=== PATIENT | male | born 1935 | race Two or more races ===

== ENCOUNTER 2021-09-12 13:19 | Inpatient (IN) | payer MEDICARE, MEDICAID ==
[~2021-09-12] VITALS: Ht 167.6 cm; Wt 68.8 kg
[2021-09-12] MEDS ORDERED: SODIUM CHLORIDE 0.9% 1,000 ML IV ONE (13:45)
[2021-09-12] MEDS ORDERED: SODIUM CHLORIDE 0.9% 250 ML IV ONE (13:45)
[2021-09-12 14:40] LABS: Basophils # (auto) 0 10 ^3/uL (0-0.2); Basophils % (auto) 0.3 % (0.0-2.0); Eosinophils # (auto) 0 10 ^3/uL (0-0.8); Eosinophils % (auto) 0.2 % (0.0-7.0); Hematocrit 43.8 % (41.0-53.0); Hemoglobin 14.6 g/dL (13.5-17.5); Lymphocytes # (auto) 2.1 10 ^3/uL (0.4-5.4); Lymphocytes % (auto) 19.8 % (10.0-50.0); Mean Corpuscular Hemoglobin 31.6 pg (28.0-32.0); Mean Corpuscular Hgb Conc. 33.3 g/dL (32.0-36.0); Mean Corpuscular Volume 94.9 fL (80.0-100.0); Monocytes # (auto) 0.4 10 ^3/uL (0-1.3); Monocytes % (auto) 3.9 % (0.0-12.0); Neutrophils # (auto) 7.9 10 ^3/uL (1.6-8.6); Neutrophils % (auto) 75.8 % (37.0-80.0); Red Blood Cells 4.61 10^6/uL (4.5-5.90); Red Cell Distribution Width 14.2 % (11.8-14.3); White Blood Cell 10.4 10^3/uL (4.4-10.8)
[2021-09-12 15:00] LABS: Albumin 3.5 g/dL (3.4-5.0); Bilirubin, Total 0.4 mg/dL (0.2-1.0); Calcium 9.1 mg/dL (8.5-10.1); Total Protein 7.5 g/dL (6.4-8.2)
[2021-09-12 15:07] LABS: Potassium 5.9 mmol/L (3.5-5.1)
[2021-09-12 16:01] LABS: Urine Bacteria NONE SEEN /hpf (None Seen); Urine Blood Negative /uL (Negative); Urine Specific Gravity 1.027 (1.001-1.035); Urine WBC <1 /hpf (0 - 3)
[2021-09-13 00:59] LABS: BUN/Creatinine Ratio 17.5; Calcium 8.5 mg/dL (8.5-10.1); Potassium 4.4 mmol/L (3.5-5.1)
[2021-09-13 01:08] LABS: Bilirubin, Total 0.5 mg/dL (0.2-1.0)
[2021-09-13] MEDS ORDERED: ACETAMINOPHEN 325 MG TAB PO PRN (01:45)
[2021-09-13] MEDS ORDERED: DEXTROSE (50%) 50ML SYRG IV PRN (01:45)
[2021-09-13] MEDS ORDERED: ONDANSETRON HCL 4 MG/2 ML VIAL IV PRN (01:45)
[2021-09-13] MEDS ORDERED: InsuLIN REG 1unit/0.01ml Soln (100units/ml) IV ONE (02:00)
[2021-09-13] MEDS: ACCU-CHEK COMFORT CURVE STRIP VI SCH ×5 (04:00→20:42)
[2021-09-13] MEDS: InsuLIN REG 1unit/0.01ml Soln (100units/ml) SC SCH ×5 (04:36→20:45)
[2021-09-13] MEDS ORDERED: PANTOPRAZOLE 40 MG TAB PO SCH (10:00)
[2021-09-13] MEDS: BENAZEPRIL HCL 10 MG TAB PO SCH (10:03)
[2021-09-13] MEDS ORDERED: METF-370 PO (11:58)
[2021-09-13] MEDS ORDERED: GLIP5TAB12 PO (12:00)
[2021-09-13] MEDS ORDERED: BENA10TA15 PO (12:01)
[2021-09-13 16:22] VITALS: BP 114/61
[2021-09-13 21:35] VITALS: BP 102/51
[2021-09-14] MEDS: InsuLIN REG 1unit/0.01ml Soln (100units/ml) SC SCH ×6 (01:11→20:00)
[2021-09-14] MEDS: ACCU-CHEK COMFORT CURVE STRIP VI SCH ×6 (01:12→20:00)
[2021-09-14 06:15] LABS: Basophils # (auto) 0.1 10 ^3/uL (0-0.2); Basophils % (auto) 0.5 % (0.0-2.0); Eosinophils # (auto) 0.3 10 ^3/uL (0-0.8); Eosinophils % (auto) 3.1 % (0.0-7.0); Hematocrit 40.1 % (41.0-53.0); Hemoglobin 13.6 g/dL (13.5-17.5); Lymphocytes # (auto) 3.8 10 ^3/uL (0.4-5.4); Lymphocytes % (auto) 39.6 % (10.0-50.0); Mean Corpuscular Hemoglobin 32.1 pg (28.0-32.0); Mean Corpuscular Volume 94.5 fL (80.0-100.0); Monocytes # (auto) 0.5 10 ^3/uL (0-1.3); Neutrophils % (auto) 51.8 % (37.0-80.0); Nucleated Red Blood Cells % 0.1 %; Red Blood Cells 4.25 10^6/uL (4.5-5.90); Red Cell Distribution Width 14.2 % (11.8-14.3); White Blood Cell 9.6 10^3/uL (4.4-10.8)
[2021-09-14 06:34] LABS: Calcium 8.2 mg/dL (8.5-10.1); Potassium 4.9 mmol/L (3.5-5.1)
[2021-09-14 06:38] LABS: BUN/Creatinine Ratio 27.8
[2021-09-14 08:47] VITALS: BP 137/65
[2021-09-14] MEDS: BENAZEPRIL HCL 10 MG TAB PO SCH (09:24)
[2021-09-14 12:44] VITALS: BP 100/54
[2021-09-14 21:30] VITALS: BP 109/59
[2021-09-14] MEDS: INSULIN LANTUS (GLARGINE) 1 /0.01ml (100units/ml) SC SCH (21:51)
[2021-09-15] MEDS: ACCU-CHEK COMFORT CURVE STRIP VI SCH ×6 (04:00→20:00)
[2021-09-15] MEDS: InsuLIN REG 1unit/0.01ml Soln (100units/ml) SC SCH ×6 (04:00→20:00)
[2021-09-15 05:00] VITALS: BP 104/64
[2021-09-15 09:08] VITALS: BP 100/61
[2021-09-15] MEDS: BENAZEPRIL HCL 10 MG TAB PO SCH (10:00)
[2021-09-15 13:00] VITALS: BP 110/68
[2021-09-15 17:04] VITALS: BP 149/83
[2021-09-15 22:00] VITALS: BP 116/68
[2021-09-15] MEDS: INSULIN LANTUS (GLARGINE) 1 /0.01ml (100units/ml) SC SCH (22:00)
[2021-09-16] MEDS: InsuLIN REG 1unit/0.01ml Soln (100units/ml) SC SCH ×4 (04:00→11:53)
[2021-09-16] MEDS: ACCU-CHEK COMFORT CURVE STRIP VI SCH ×4 (04:25→11:50)
[2021-09-16 05:00] VITALS: BP 115/66
[2021-09-16 08:55] VITALS: BP 116/73
[2021-09-16] MEDS: BENAZEPRIL HCL 10 MG TAB PO SCH (10:09)
[2021-09-16 14:30] VITALS: BP 102/54
== END 2021-09-16 16:36 | disposition home or self-care (01) | DRG 420 ==
LOC: ER 13:19 → OVERFLOW 09-13 01:37 → CENTRAL 09-13 17:08 → WEST WING 09-14 05:53
PROVIDERS: ADMIT Nurse Practitioner; ATTEND Family Medicine
DX: E11.00 Type 2 diabetes mellitus with hyperosmolarity without nonketotic hyperglycemic-hyperosmolar coma (NKHHC) (principal); E11.21 Type 2 diabetes mellitus with diabetic nephropathy; E87.5 Hyperkalemia; J44.9 Chronic obstructive pulmonary disease, unspecified; I10 Essential (primary) hypertension; Z20.822 Contact with and (suspected) exposure to COVID-19; Z79.84 Long term (current) use of oral hypoglycemic drugs; Z79.4 Long term (current) use of insulin
CPT/HCPCS: 36415; 71046; 80048; 80053; 81001; 82010; 82962; 83036; 83735; 84443; 84484; 85025; 87426; 93005; 96361; 96374; G0378; J1815

== ENCOUNTER → 2022-06-27 | Outpatient (CLI) | payer MEDICARE, MEDICAID ==
[~2022-06-27] MED LIST: ALBU108A5 PO; ALBUTEROL SULF 2.5 MG/0.5ML(0.5%) NEB SOLN ONE; BENA10TA15 PO; CEPH-509 PO; FLUT100I IN; GLIP5TAB12 PO; METF-929 PO; OMEP-260 PO; PRED20TA2 PO; SODIUM CHLORIDE 0.9 % NEB SOLN 3ML NEB ONE
== END | disposition home or self-care (01) ==
LOC: RT 10:47
PROVIDERS: ATTEND Internal Medicine Pulmonary Disease
DX: J44.9 Chronic obstructive pulmonary disease, unspecified (principal); R06.00 Dyspnea, unspecified
CPT/HCPCS: 94060; 94727; 94729

== ENCOUNTER 2022-09-27 09:20 | Inpatient (IN) | payer MEDICARE, MEDICAID ==
[~2022-09-27] VITALS: Ht 165.1 cm; Wt 80.0 kg
[~2022-09-27 09:20] MED LIST changes: -ALBUTEROL SULF 2.5 MG/0.5ML(0.5%) NEB SOLN ONE; -SODIUM CHLORIDE 0.9 % NEB SOLN 3ML NEB ONE
[2022-09-27 10:13] LABS: Basophils # (auto) 0.1 10 ^3/uL (0-0.2); Basophils % (auto) 0.9 % (0.0-2.0); Eosinophils # (auto) 0.1 10 ^3/uL (0-0.8); Eosinophils % (auto) 1.7 % (0.0-7.0); Hematocrit 42.1 % (41.0-53.0); Hemoglobin 14.2 g/dL (13.5-17.5); Lymphocytes # (auto) 1.4 10 ^3/uL (0.4-5.4); Mean Corpuscular Hemoglobin 30.8 pg (28.0-32.0); Mean Corpuscular Hgb Conc. 33.8 g/dL (32.0-36.0); Mean Corpuscular Volume 91.2 fL (80.0-100.0); Monocytes # (auto) 0.8 10 ^3/uL (0-1.3); Neutrophils # (auto) 6.3 10 ^3/uL (1.6-8.6); Neutrophils % (auto) 72.4 % (37.0-80.0); Nucleated Red Blood Cells % 0.1 %; Red Blood Cells 4.62 10^6/uL (4.5-5.90); Red Cell Distribution Width 14.6 % (11.8-14.3); White Blood Cell 8.8 10^3/uL (4.4-10.8)
[2022-09-27 10:29] LABS: Albumin 3.8 g/dL (3.4-5.0); Calcium 8.6 mg/dL (8.5-10.1); Magnesium 2.1 mg/dL (1.6-2.6); Potassium 4.2 mmol/L (3.5-5.1)
[2022-09-27 10:32] LABS: BUN/Creatinine Ratio 10.4; Bilirubin, Total 0.7 mg/dL (0.2-1.0); Total Protein 7.6 g/dL (6.4-8.2)
[2022-09-27 16:15] LABS: Urine Bacteria NONE SEEN /hpf (None Seen); Urine Blood Negative /uL (Negative); Urine Mucus FEW (None Seen); Urine Specific Gravity 1.019 (1.001-1.035); Urine WBC 2 /hpf (0 - 3)
[2022-09-27] MEDS ORDERED: FUROSEMIDE 40 MG/4 ML VIAL IV ONE (17:30)
[2022-09-27] MEDS ORDERED: ALBUTEROL SULF 2.5 MG/0.5ML(0.5%) NEB SOLN NEB PRN (18:15)
[2022-09-27] MEDS ORDERED: ACETAMINOPHEN 325 MG TAB PO PRN (18:15)
[2022-09-27] MEDS ORDERED: methylPREDNISolone SOD SUCC 125 MG/2 ML VL IV ONE (18:15)
[2022-09-27] MEDS ORDERED: SODIUM CHLORIDE 0.9% 1,000 ML IV SCH (18:15)
[2022-09-27] MEDS ORDERED: DEXTROSE (50%) 50ML SYRG IV PRN (18:30)
[2022-09-27 19:29] LABS: Cholesterol 114 mg/dL (< 200)
[2022-09-27 19:31] LABS: HDL Cholesterol 56 mg/dL (40-59); LDL Cholesterol 58 mg/dL (< 100); Triglycerides 83 mg/dL (< 150)
[2022-09-27 21:33] VITALS: BP 156/88
[2022-09-27 22:09] VITALS: BP 154/79
[2022-09-27] MEDS ORDERED: CLOP75TA70 PO (22:26)
[2022-09-27] MEDS: ACCU-CHEK COMFORT CURVE STRIP VI SCH (22:38)
[2022-09-27] MEDS: InsuLIN REG 1unit/0.01ml Soln (100units/ml) SC SCH (22:54)
[2022-09-28] MEDS: ALBUTEROL SULF 2.5 MG/0.5ML(0.5%) NEB SOLN NEB PRN ×3 (00:10→11:18)
[2022-09-28] MEDS: IPRATROPIUM BROM 0.5 MG/2.5ML INH SOL NEB SCH ×3 (00:10→11:18)
[2022-09-28 05:00] VITALS: BP 122/74
[2022-09-28 05:20] LABS: Basophils # (auto) 0 10 ^3/uL (0-0.2); Basophils % (auto) 0.5 % (0.0-2.0); Eosinophils # (auto) 0 10 ^3/uL (0-0.8); Hematocrit 42.3 % (41.0-53.0); Hemoglobin 14.6 g/dL (13.5-17.5); Lymphocytes # (auto) 1.2 10 ^3/uL (0.4-5.4); Lymphocytes % (auto) 24.7 % (10.0-50.0); Mean Corpuscular Hgb Conc. 34.4 g/dL (32.0-36.0); Mean Corpuscular Volume 90.2 fL (80.0-100.0); Monocytes # (auto) 0.1 10 ^3/uL (0-1.3); Monocytes % (auto) 2.8 % (0.0-12.0); Neutrophils # (auto) 3.6 10 ^3/uL (1.6-8.6); Nucleated Red Blood Cells % 0.1 %; Red Blood Cells 4.69 10^6/uL (4.5-5.90); Red Cell Distribution Width 14.2 % (11.8-14.3)
[2022-09-28 05:43] LABS: Albumin 3.7 g/dL (3.4-5.0); Calcium 8.7 mg/dL (8.5-10.1); Potassium 4.1 mmol/L (3.5-5.1)
[2022-09-28 05:46] LABS: BUN/Creatinine Ratio 19.5; Bilirubin, Total 0.8 mg/dL (0.2-1.0); Total Protein 7.8 g/dL (6.4-8.2)
[2022-09-28] MEDS: ACCU-CHEK COMFORT CURVE STRIP VI SCH ×2 (06:54→12:47)
[2022-09-28] MEDS: InsuLIN REG 1unit/0.01ml Soln (100units/ml) SC SCH ×2 (06:58→12:46)
[2022-09-28 08:00] VITALS: BP 142/78
[2022-09-28 09:00] VITALS: BP 142/78
[2022-09-28] MEDS ORDERED: methylPREDNISolone SOD SUCC 125 MG/2 ML VL IV SCH (10:00)
[2022-09-28] MEDS ORDERED: ENOXAPARIN SOD 40 MG/0.4 ML SYRINGE SC SCH (10:00)
[2022-09-28] MEDS ORDERED: BENAZEPRIL HCL 10 MG TAB PO SCH (10:00)
[2022-09-28 13:00] VITALS: BP 144/70
[2022-09-28 16:02] VITALS: BP 144/70
== END 2022-09-28 17:44 | disposition home health service (06) | DRG 140 ==
LOC: ER 09:20 → OVERFLOW 18:13 → EAST 21:51
PROVIDERS: ADMIT Nurse Practitioner Family; ATTEND Nurse Practitioner Family
DX: J44.1 Chronic obstructive pulmonary disease with (acute) exacerbation (principal); Z99.81 Dependence on supplemental oxygen; E11.9 Type 2 diabetes mellitus without complications; J06.9 Acute upper respiratory infection, unspecified; I25.10 Atherosclerotic heart disease of native coronary artery without angina pectoris; I10 Essential (primary) hypertension; Z20.822 Contact with and (suspected) exposure to COVID-19; Z80.9 Family history of malignant neoplasm, unspecified
CPT/HCPCS: 36415; 71046; 80053; 80061; 81001; 82962; 83036; 83735; 84443; 85025; 85379; 87426; 93005; 94640; 96374; 96375; 97163; G0378; J1815

== ENCOUNTER 2022-09-30 05:38 | Inpatient (IN) | payer MEDICARE, MEDICAID ==
[~2022-09-30] VITALS: Ht 165.1 cm; Wt 72.5 kg
[~2022-09-30 05:38] MED LIST changes: +CLOP75TA70 PO
[2022-09-30 06:43] LABS: Basophils # (auto) 0 10 ^3/uL (0-0.2); Basophils % (auto) 0.3 % (0.0-2.0); Eosinophils # (auto) 0 10 ^3/uL (0-0.8); Eosinophils % (auto) 0.1 % (0.0-7.0); Hematocrit 43.4 % (41.0-53.0); Hemoglobin 14.4 g/dL (13.5-17.5); Lymphocytes # (auto) 1.4 10 ^3/uL (0.4-5.4); Lymphocytes % (auto) 10.5 % (10.0-50.0); Mean Corpuscular Hemoglobin 30.2 pg (28.0-32.0); Mean Corpuscular Hgb Conc. 33.3 g/dL (32.0-36.0); Mean Corpuscular Volume 90.7 fL (80.0-100.0); Monocytes % (auto) 7.3 % (0.0-12.0); Neutrophils # (auto) 11.1 10 ^3/uL (1.6-8.6); Neutrophils % (auto) 81.8 % (37.0-80.0); Nucleated Red Blood Cells % 0.1 %; Red Blood Cells 4.78 10^6/uL (4.5-5.90); Red Cell Distribution Width 14.6 % (11.8-14.3); White Blood Cell 13.6 10^3/uL (4.4-10.8)
[2022-09-30 07:19] LABS: Albumin 3.6 g/dL (3.4-5.0); BUN/Creatinine Ratio 34.3; Bilirubin, Total 0.8 mg/dL (0.2-1.0); Calcium 8.3 mg/dL (8.5-10.1); Potassium 4.6 mmol/L (3.5-5.1); Total Protein 7.4 g/dL (6.4-8.2)
[2022-09-30] MEDS ORDERED: cefTRIAXone 1GM/50ML D5W 50 ML IV ONE (07:45)
[2022-09-30] MEDS ORDERED: HYDROcodone-ACET 5/325MG TAB PO PRN (11:45)
[2022-09-30] MEDS ORDERED: ACETAMINOPHEN 325 MG TAB PO PRN (11:45)
[2022-09-30] MEDS ORDERED: NITROGLYCERIN 0.4 MG SL TAB SL PRN (11:45)
[2022-09-30] MEDS ORDERED: MORPHINE SULFATE INJ 2 MG/ml SYRG IV PRN ×2 (11:45)
[2022-09-30] MEDS ORDERED: ATOR20TA50 PO (11:56)
[2022-09-30] MEDS ORDERED: AZITHROMYCIN 500MG/ 250ML 250 ML IV ONE (12:00)
[2022-09-30] MEDS ORDERED: ALBUTEROL SULF 2.5 MG/0.5ML(0.5%) NEB SOLN NEB PRN (12:00)
[2022-09-30] MEDS ORDERED: CARVEDILOL 12.5 MG TAB PO ONE (12:00)
[2022-09-30] MEDS ORDERED: hydrALAZINE HCL 20 MG/ML VL IV PRN (12:00)
[2022-09-30] MEDS ORDERED: FUROSEMIDE 20 MG/2 ML VIAL IV ONE (12:00)
[2022-09-30] MEDS ORDERED: IPRATROPIUM BROM 0.5 MG/2.5ML INH SOL NEB PRN (12:00)
[2022-09-30] MEDS ORDERED: DEXTROSE (50%) 50ML SYRG IV PRN (12:15)
[2022-09-30] MEDS: SODIUM CHLORIDE 0.9% 1,000 ML IV SCH (12:35)
[2022-09-30] MEDS: IPRATROPIUM BROM 0.5 MG/2.5ML INH SOL NEB SCH ×2 (12:43→18:43)
[2022-09-30] MEDS: ALBUTEROL SULF 2.5 MG/0.5ML(0.5%) NEB SOLN NEB SCH ×2 (12:43→18:43)
[2022-09-30 14:29] LABS: Urine WBC None Seen /hpf (0 - 3)
[2022-09-30 15:09] LABS: Urine Bacteria NONE SEEN /hpf (None Seen); Urine Blood Negative /uL (Negative); Urine Specific Gravity 1.012 (1.001-1.035)
[2022-09-30] MEDS ORDERED: CLOPIDOGREL BISULFATE 75 MG TAB PO ONE (15:30)
[2022-09-30] MEDS ORDERED: ASPirin 81 mg TAB PO ONE (15:30)
[2022-09-30] MEDS: ACCU-CHEK COMFORT CURVE STRIP VI SCH (17:47)
[2022-09-30] MEDS: InsuLIN REG 1unit/0.01ml Soln (100units/ml) SC SCH (17:49)
[2022-09-30 20:37] VITALS: BP 111/61
[2022-09-30 22:00] VITALS: BP 132/56
[2022-09-30 23:07] VITALS: BP 132/56
[2022-10-01] MEDS: methylPREDNISolone SOD SUCC 125 MG/2 ML VL IV SCH ×3 (00:51→22:09)
[2022-10-01] MEDS: glipiZIDE 5 MG TAB PO SCH ×3 (00:51→22:10)
[2022-10-01] MEDS: SODIUM CHLORIDE 0.9% 1,000 ML IV SCH ×3 (00:53→17:06)
[2022-10-01] MEDS: ACCU-CHEK COMFORT CURVE STRIP VI SCH ×5 (01:22→22:10)
[2022-10-01] MEDS: InsuLIN REG 1unit/0.01ml Soln (100units/ml) SC SCH ×4 (01:23→22:13)
[2022-10-01 05:00] VITALS: BP 130/56
[2022-10-01 05:48] LABS: Basophils # (auto) 0 10 ^3/uL (0-0.2); Basophils % (auto) 0.1 % (0.0-2.0); Eosinophils # (auto) 0 10 ^3/uL (0-0.8); Hemoglobin 12.6 g/dL (13.5-17.5); Lymphocytes # (auto) 1.1 10 ^3/uL (0.4-5.4); Lymphocytes % (auto) 9.9 % (10.0-50.0); Mean Corpuscular Hemoglobin 31.1 pg (28.0-32.0); Mean Corpuscular Hgb Conc. 34.2 g/dL (32.0-36.0); Mean Corpuscular Volume 90.9 fL (80.0-100.0); Monocytes # (auto) 0.3 10 ^3/uL (0-1.3); Monocytes % (auto) 2.6 % (0.0-12.0); Neutrophils # (auto) 9.8 10 ^3/uL (1.6-8.6); Neutrophils % (auto) 87.4 % (37.0-80.0); Red Blood Cells 4.06 10^6/uL (4.5-5.90); Red Cell Distribution Width 14.4 % (11.8-14.3); White Blood Cell 11.2 10^3/uL (4.4-10.8)
[2022-10-01] MEDS: IPRATROPIUM BROM 0.5 MG/2.5ML INH SOL NEB SCH ×3 (07:07→20:09)
[2022-10-01] MEDS: ALBUTEROL SULF 2.5 MG/0.5ML(0.5%) NEB SOLN NEB SCH ×3 (07:07→20:09)
[2022-10-01 09:00] VITALS: BP 121/58
[2022-10-01] MEDS: cefTRIAXone 1GM/50ML D5W 50 ML IV SCH (09:15)
[2022-10-01] MEDS: FUROSEMIDE 20 MG/2 ML VIAL IV SCH (09:16)
[2022-10-01] MEDS: ATORVASTATIN 20 MG TAB PO SCH (09:17)
[2022-10-01] MEDS: ASPirin 81 mg TAB PO SCH (09:17)
[2022-10-01] MEDS: BENAZEPRIL HCL 10 MG TAB PO SCH (09:18)
[2022-10-01] MEDS: CLOPIDOGREL BISULFATE 75 MG TAB PO SCH (09:19)
[2022-10-01] MEDS: OMEPRAZOLE 20MG/10ML ORAL SUSP PO SCH (09:19)
[2022-10-01] MEDS: ENOXAPARIN SOD 40 MG/0.4 ML SYRINGE SC SCH (09:20)
[2022-10-01] MEDS: AZITHROMYCIN 500MG/ 250ML 250 ML IV SCH (11:28)
[2022-10-01 13:00] VITALS: BP 109/68
[2022-10-01 17:09] VITALS: BP 93/64
[2022-10-01 22:00] VITALS: BP 132/66
[2022-10-01] MEDS: OSELTAMIVIR 75 MG CAP PO SCH (22:00)
[2022-10-02 04:50] VITALS: BP 142/65
[2022-10-02] MEDS: ACCU-CHEK COMFORT CURVE STRIP VI SCH ×4 (06:11→22:21)
[2022-10-02] MEDS: ALBUTEROL SULF 2.5 MG/0.5ML(0.5%) NEB SOLN NEB SCH ×3 (06:15→19:14)
[2022-10-02] MEDS: IPRATROPIUM BROM 0.5 MG/2.5ML INH SOL NEB SCH ×3 (06:15→19:14)
[2022-10-02] MEDS: InsuLIN REG 1unit/0.01ml Soln (100units/ml) SC SCH ×4 (06:16→22:23)
[2022-10-02 09:00] VITALS: BP 148/67
[2022-10-02] MEDS: cefTRIAXone 1GM/50ML D5W 50 ML IV SCH (10:07)
[2022-10-02] MEDS: FUROSEMIDE 20 MG/2 ML VIAL IV SCH (10:07)
[2022-10-02] MEDS: CLOPIDOGREL BISULFATE 75 MG TAB PO SCH (10:08)
[2022-10-02] MEDS: ENOXAPARIN SOD 40 MG/0.4 ML SYRINGE SC SCH (10:08)
[2022-10-02] MEDS: OMEPRAZOLE 20MG/10ML ORAL SUSP PO SCH (10:08)
[2022-10-02] MEDS: ATORVASTATIN 20 MG TAB PO SCH (10:08)
[2022-10-02] MEDS: methylPREDNISolone SOD SUCC 125 MG/2 ML VL IV SCH ×2 (10:08→22:20)
[2022-10-02] MEDS: BENAZEPRIL HCL 10 MG TAB PO SCH (10:08)
[2022-10-02] MEDS: ASPirin 81 mg TAB PO SCH (10:08)
[2022-10-02] MEDS: OSELTAMIVIR 75 MG CAP PO SCH ×2 (10:40→22:00)
[2022-10-02] MEDS: AZITHROMYCIN 500MG/ 250ML 250 ML IV SCH (11:32)
[2022-10-02] MEDS: glipiZIDE 5 MG TAB PO SCH ×2 (11:37→22:21)
[2022-10-02 13:00] VITALS: BP 104/69
[2022-10-02 16:50] VITALS: BP 140/64
[2022-10-02 22:00] VITALS: BP 139/56
[2022-10-03 05:00] VITALS: BP 145/64
[2022-10-03] MEDS: ACCU-CHEK COMFORT CURVE STRIP VI SCH ×4 (06:14→22:22)
[2022-10-03] MEDS: InsuLIN REG 1unit/0.01ml Soln (100units/ml) SC SCH ×4 (06:25→22:25)
[2022-10-03] MEDS: SODIUM CHLORIDE 0.9% 1,000 ML IV SCH ×2 (06:26→23:32)
[2022-10-03] MEDS: IPRATROPIUM BROM 0.5 MG/2.5ML INH SOL NEB SCH ×3 (07:00→18:56)
[2022-10-03] MEDS: ALBUTEROL SULF 2.5 MG/0.5ML(0.5%) NEB SOLN NEB SCH ×3 (07:01→18:56)
[2022-10-03 08:30] VITALS: BP 158/54
[2022-10-03] MEDS: FUROSEMIDE 20 MG/2 ML VIAL IV SCH (08:54)
[2022-10-03] MEDS: cefTRIAXone 1GM/50ML D5W 50 ML IV SCH (08:54)
[2022-10-03] MEDS: methylPREDNISolone SOD SUCC 125 MG/2 ML VL IV SCH ×2 (08:55→22:21)
[2022-10-03] MEDS: ATORVASTATIN 20 MG TAB PO SCH (08:56)
[2022-10-03] MEDS: ASPirin 81 mg TAB PO SCH (08:57)
[2022-10-03] MEDS: CLOPIDOGREL BISULFATE 75 MG TAB PO SCH (08:58)
[2022-10-03] MEDS: BENAZEPRIL HCL 10 MG TAB PO SCH (08:58)
[2022-10-03] MEDS: OMEPRAZOLE 20MG/10ML ORAL SUSP PO SCH (08:59)
[2022-10-03] MEDS: ENOXAPARIN SOD 40 MG/0.4 ML SYRINGE SC SCH (09:00)
[2022-10-03] MEDS: OSELTAMIVIR 75 MG CAP PO SCH ×2 (10:39→22:00)
[2022-10-03] MEDS: AZITHROMYCIN 500MG/ 250ML 250 ML IV SCH (10:39)
[2022-10-03] MEDS: glipiZIDE 5 MG TAB PO SCH ×2 (11:31→22:21)
[2022-10-03 12:30] VITALS: BP 132/60
[2022-10-03 16:30] VITALS: BP 135/64
[2022-10-03 22:00] VITALS: BP 129/64
[2022-10-04 01:12] VITALS: BP 129/64
[2022-10-04 05:00] VITALS: BP 133/70
[2022-10-04] MEDS: ALBUTEROL SULF 2.5 MG/0.5ML(0.5%) NEB SOLN NEB SCH ×2 (06:29→11:13)
[2022-10-04] MEDS: IPRATROPIUM BROM 0.5 MG/2.5ML INH SOL NEB SCH ×2 (06:29→11:13)
[2022-10-04] MEDS: ACCU-CHEK COMFORT CURVE STRIP VI SCH ×2 (06:43→11:30)
[2022-10-04] MEDS: InsuLIN REG 1unit/0.01ml Soln (100units/ml) SC SCH ×2 (06:49→11:30)
[2022-10-04 09:00] VITALS: BP 107/59
[2022-10-04] MEDS: cefTRIAXone 1GM/50ML D5W 50 ML IV SCH (09:41)
[2022-10-04] MEDS: ATORVASTATIN 20 MG TAB PO SCH (09:43)
[2022-10-04] MEDS: CLOPIDOGREL BISULFATE 75 MG TAB PO SCH (09:43)
[2022-10-04] MEDS: BENAZEPRIL HCL 10 MG TAB PO SCH (09:44)
[2022-10-04] MEDS: ASPirin 81 mg TAB PO SCH (09:44)
[2022-10-04] MEDS: FUROSEMIDE 20 MG/2 ML VIAL IV SCH (09:45)
[2022-10-04] MEDS: methylPREDNISolone SOD SUCC 125 MG/2 ML VL IV SCH (09:47)
[2022-10-04] MEDS: AZITHROMYCIN 500MG/ 250ML 250 ML IV SCH (09:52)
[2022-10-04] MEDS: OSELTAMIVIR 75 MG CAP PO SCH (10:00)
[2022-10-04] MEDS ORDERED: OSEL75CA5 PO (10:19)
[2022-10-04] MEDS ORDERED: AZIT500T66 PO (10:19)
[2022-10-04] MEDS: ENOXAPARIN SOD 40 MG/0.4 ML SYRINGE SC SCH (10:38)
[2022-10-04] MEDS: OMEPRAZOLE 20MG/10ML ORAL SUSP PO SCH (10:39)
[2022-10-04] MEDS: glipiZIDE 5 MG TAB PO SCH (10:39)
[2022-10-04] MEDS ORDERED: InsuLIN REG 1unit/0.01ml Soln (100units/ml) SC ONE (10:45)
== END 2022-10-04 13:10 | disposition home or self-care (01) | DRG 720 ==
LOC: ER 05:38 → TELE 11:49 → TELE-EAST 20:57
PROVIDERS: ADMIT Registered Nurse; ATTEND Family Medicine
DX: A41.9 Sepsis, unspecified organism (principal); J96.21 Acute and chronic respiratory failure with hypoxia; J11.00 Influenza due to unidentified influenza virus with unspecified type of pneumonia; I11.0 Hypertensive heart disease with heart failure; I50.9 Heart failure, unspecified; J90 Pleural effusion, not elsewhere classified; I25.10 Atherosclerotic heart disease of native coronary artery without angina pectoris; E11.9 Type 2 diabetes mellitus without complications; Z20.822 Contact with and (suspected) exposure to COVID-19; E78.5 Hyperlipidemia, unspecified; J44.0 Chronic obstructive pulmonary disease with (acute) lower respiratory infection; J44.1 Chronic obstructive pulmonary disease with (acute) exacerbation; Z79.84 Long term (current) use of oral hypoglycemic drugs; Z98.61 Coronary angioplasty status
CPT/HCPCS: 36415; 71045; 76604; 80053; 81001; 82962; 83605; 83880; 84484; 85025; 87040; 87081; 87426; 87804; 93005; 93306; 94640; 96365; 96366; 96367; 96372; 96375; 99291; G0378; J0696; J1815

== ENCOUNTER → 2022-11-21 | Outpatient (CLI) | payer MEDICARE, MEDICAID ==
[~2022-11-21] MED LIST changes: +ATOR20TA50 PO; +AZIT500T66 PO; +OSEL75CA5 PO
[2022-11-21 09:36] LABS: Basophils # (auto) 0.1 10 ^3/uL (0-0.2); Basophils % (auto) 0.9 % (0.0-2.0); Eosinophils # (auto) 0.3 10 ^3/uL (0-0.8); Eosinophils % (auto) 3.5 % (0.0-7.0); Hematocrit 37.8 % (41.0-53.0); Hemoglobin 13.4 g/dL (13.5-17.5); Lymphocytes # (auto) 3.4 10 ^3/uL (0.4-5.4); Lymphocytes % (auto) 36.2 % (10.0-50.0); Mean Corpuscular Hemoglobin 31.3 pg (28.0-32.0); Mean Corpuscular Hgb Conc. 35.3 g/dL (32.0-36.0); Mean Corpuscular Volume 88.7 fL (80.0-100.0); Monocytes # (auto) 0.5 10 ^3/uL (0-1.3); Monocytes % (auto) 5.5 % (0.0-12.0); Neutrophils % (auto) 53.9 % (37.0-80.0); Nucleated Red Blood Cells % 0.1 %; Red Blood Cells 4.27 10^6/uL (4.5-5.90); Red Cell Distribution Width 15.4 % (11.8-14.3); White Blood Cell 9.4 10^3/uL (4.4-10.8)
[2022-11-21 10:26] LABS: Albumin 3.5 g/dL (3.4-5.0); Calcium 8.7 mg/dL (8.5-10.1)
[2022-11-21 10:31] LABS: BUN/Creatinine Ratio 15.3; Bilirubin, Total 0.7 mg/dL (0.2-1.0); Total Protein 7.4 g/dL (6.4-8.2)
[2022-11-21 10:46] LABS: Free T4 (Free Thyroxine) 1.1 ng/dL (0.89-1.76); Prostate Specific Antigen 1.13 ng/mL (0.0-4.0)
== END | disposition home or self-care (01) ==
LOC: LAB 09:21
PROVIDERS: ATTEND Nurse Practitioner Family
DX: I10 Essential (primary) hypertension (principal); E78.5 Hyperlipidemia, unspecified; E11.65 Type 2 diabetes mellitus with hyperglycemia; I25.10 Atherosclerotic heart disease of native coronary artery without angina pectoris; R35.1 Nocturia
CPT/HCPCS: 36415; 80053; 80061; 82043; 83036; 84153; 84439; 84443; 85025

== ENCOUNTER 2023-01-24 22:17 | Emergency (ER) | payer MEDICARE, MEDICAID ==
[~2023-01-24] VITALS: Ht 165.1 cm; Wt 75.1 kg
[2023-01-24 22:24] VITALS: BP 154/74
[2023-01-24] MEDS ORDERED: ALBUTEROL SULF 2.5 MG/0.5ML(0.5%) NEB SOLN NEB ONE (22:30)
[2023-01-24] MEDS ORDERED: IPRATROPIUM BROM 0.5 MG/2.5ML INH SOL NEB ONE (22:30)
[2023-01-24 22:54] LABS: Basophils # (auto) 0.1 10 ^3/uL (0-0.2); Basophils % (auto) 1.1 % (0.0-2.0); Eosinophils # (auto) 0.6 10 ^3/uL (0-0.8); Eosinophils % (auto) 6.8 % (0.0-7.0); Hematocrit 38.3 % (41.0-53.0); Hemoglobin 12.7 g/dL (13.5-17.5); Lymphocytes # (auto) 3.4 10 ^3/uL (0.4-5.4); Lymphocytes % (auto) 36.7 % (10.0-50.0); Mean Corpuscular Hemoglobin 30.2 pg (28.0-32.0); Mean Corpuscular Hgb Conc. 33.2 g/dL (32.0-36.0); Mean Corpuscular Volume 90.9 fL (80.0-100.0); Monocytes # (auto) 0.6 10 ^3/uL (0-1.3); Monocytes % (auto) 6.7 % (0.0-12.0); Neutrophils # (auto) 4.5 10 ^3/uL (1.6-8.6); Neutrophils % (auto) 48.7 % (37.0-80.0); Nucleated Red Blood Cells % 0.1 %; Red Blood Cells 4.21 10^6/uL (4.5-5.90); Red Cell Distribution Width 14.8 % (11.8-14.3); White Blood Cell 9.2 10^3/uL (4.4-10.8)
[2023-01-24 23:22] LABS: Albumin 3.3 g/dL (3.4-5.0); BUN/Creatinine Ratio 24.5; Calcium 8.3 mg/dL (8.5-10.1); Potassium 3.8 mmol/L (3.5-5.1)
[2023-01-24 23:25] LABS: Bilirubin, Total 0.3 mg/dL (0.2-1.0); Total Protein 7.5 g/dL (6.4-8.2)
== END 2023-01-25 03:37 | disposition left against medical advice (07) ==
LOC: ER 22:17
DX: R06.02 Shortness of breath (principal); R06.89 Other abnormalities of breathing; J44.9 Chronic obstructive pulmonary disease, unspecified; E11.9 Type 2 diabetes mellitus without complications; I10 Essential (primary) hypertension; Z87.891 Personal history of nicotine dependence
CPT/HCPCS: 36415; 71045; 80053; 83880; 84484; 85025; 85379; 93005; 94640; 99285; J7644

== ENCOUNTER → 2023-02-27 | Outpatient (CLI) | payer MEDICARE, MEDICAID | END | disposition home or self-care (01) | LOC: LAB 14:00 | PROVIDERS: ATTEND Internal Medicine Pulmonary Disease | DX: J18.9 Pneumonia, unspecified organism (principal) | CPT/HCPCS: 87070; 87077; 87186; 87205 ==

== ENCOUNTER → 2024-09-13 | Outpatient (CLI) | payer MEDICARE, MEDICAID ==
[~2024-09-13] MED LIST changes: -BENA10TA15 PO; +BENA10TA90 PO; -GLIP5TAB12 PO; +GLIP5TAB21 PO; -OMEP-260 PO; +OMEP1CAP70 PO
[2024-09-13 10:34] LABS: Basophils # (auto) 0.1 10 ^3/uL (0-0.2); Basophils % (auto) 1.1 % (0.0-2.0); Eosinophils # (auto) 0.3 10 ^3/uL (0-0.8); Eosinophils % (auto) 2.7 % (0.0-7.0); Hematocrit 42.2 % (41.0-53.0); Hemoglobin 14.2 g/dL (13.5-17.5); Lymphocytes # (auto) 3.5 10 ^3/uL (0.4-5.4); Lymphocytes % (auto) 31.1 % (10.0-50.0); Mean Corpuscular Hemoglobin 31.9 pg (28.0-32.0); Mean Corpuscular Hgb Conc. 33.7 g/dL (32.0-36.0); Mean Corpuscular Volume 94.6 fL (80.0-100.0); Monocytes # (auto) 0.6 10 ^3/uL (0-1.3); Monocytes % (auto) 5.1 % (0.0-12.0); Neutrophils # (auto) 6.7 10 ^3/uL (1.6-8.6); Nucleated Red Blood Cells % 0.1 %; Platelet Count (auto) 280 10^3/uL (140-450); Red Blood Cells 4.46 10^6/uL (4.5-5.90); White Blood Cell 11.2 10^3/uL (4.4-10.8)
[2024-09-13 10:58] LABS: Alanine Aminotransferase 23 U/L (7-40); Albumin 4.2 g/dL (3.2-4.8); Alkaline Phosphatase 80 U/L (46-116); Anion Gap 5 (5-15); Aspartate Aminotransferase 17 U/L (13-40); BUN/Creatinine Ratio 16.7 (10.0-20.0); Blood Urea Nitrogen 16 mg/dL (9-23); Calcium 9.8 mg/dL (8.7-10.4); Carbon Dioxide 30 mmol/L (20-31); Chloride 104 mmol/L (98-107); Glucose 121 mg/dL (74-106); LDL Cholesterol 93 mg/dL (< 100); Potassium 4.6 mmol/L (3.5-5.1); Sodium 139 mmol/L (136-145); Triglycerides 113 mg/dL (< 150)
[2024-09-13 10:59] LABS: Bilirubin, Total 0.7 mg/dL (0.2-1.0); Cholesterol 158 mg/dL (< 200); HDL Cholesterol 51 mg/dL (40-59)
[2024-09-13 11:00] LABS: Total Protein 7.5 g/dL (5.7-8.2)
[2024-09-13 14:25] LABS: Creatinine, Urine 47.33 mg/dL (30.0-125.0)
== END | disposition home or self-care (01) ==
LOC: LAB 09:35
PROVIDERS: ATTEND Nurse Practitioner Family
DX: I11.0 Hypertensive heart disease with heart failure (principal); I50.9 Heart failure, unspecified; R35.1 Nocturia; E11.40 Type 2 diabetes mellitus with diabetic neuropathy, unspecified
CPT/HCPCS: 36415; 80053; 80061; 82043; 82570; 83036; 84153; 84443; 85025

== ENCOUNTER 2024-12-16 12:04 | Inpatient (IN) | payer MEDICARE, MEDICAID ==
[~2024-12-16] VITALS: Ht 170.2 cm; Wt 69.4 kg
[2024-12-16] MEDS: SODIUM CHLORIDE 0.9% 1,000 ML IV ONE (12:15)
--- NOTE | 2024-12-16 12:22 | ED.PDOC ---
History of Present Illness HPI Comments 89 y/o M, BIBRj with PMHX of DM presents to the ED for CC of syncopal episode. Patient states, that he was using the restroom at home when he began to wipe himself clean he felt weak causing him to pass out and lose consciousness. Per EMS, family relays that upon entering the restroom patient was found unresp onsive; family believed patient to have no pulse and began cardiopulmonary resuscitation. Patient regained consciousness shortly after and emergency medical personal was called. In route to ED blood sugar read at 240 on the glucometer and all vital signs were stable. Patient denies chest pain, palpations, shortness of breath, dizziness, hitting his head or weakness. No other symptoms or modifying factors at this time. Time Seen by MD: 12:00 Primary Care Provider: DIAMOND Reviewed Notes: Nurses Notes, Medications, Allergies Allergies: Coded Allergies: NO KNOWN ALLERGIES (Unverified , 09/12/21) Home Meds Active Scripts Oseltamivir Phosphate (Tamiflu) 75 Mg Cap, 1 CAP PO BID, #10 CAP Prov:YARIEL HOLT MD 10/04/22 Azithromycin (Azithromycin) 500 Mg Tab, 1 TAB PO DAILY, #5 TAB Prov:YARIEL HOLT MD 10/04/22 Cephalexin (KEFLEX 500) 500 Mg Cap, 1 CAP PO TID for 3 Days, #9 CAP Prov:SADAF GOODSON MD 04/26/22 Prednisone (Prednisone) 20 Mg Tab, 20 MG PO BID for 5 Days, #10 TAB Prov:SADAF GOODSON MD 04/26/22 Reported Medications Atorvastatin Calcium (ATORVASTATIN CALCIUM) 20 Mg Tab, 1 TAB PO DAILY 09/30/22 Clopidogrel Bisulfate (CLOPIDOGREL) 75 Mg Tab, 1 TAB PO DAILYPRN 09/27/22 Fluticasone Furoate-Vilanterol (BREO ELLIPTA) 1 Inh Inh, 1 PUFF IN DAILY, INHALER DOSE 100/25 MCG 04/23/22 Metformin HCl (Metformin Hydrochloride) 1,000 Mg Tab, 1000 MG PO BID, TAB 04/23/22 Albuterol Sulfate (Albuterol Sulfate Hfa) 108 Mcg/Act Aer, 2 PUFF PO PRN for SHORTNESS OF BREATH EVERY 4 TO 6 HOURS NEEDED 04/20/22 Omeprazole (Omepraz[address] Dr) 20 Mg Cap, 1 CAP PO DAILY 04/20/22 Benazepril Hcl (Benazepril Hcl) 10 Mg Tab, 10 MG PO DAILY, MG 09/13/21 Glipizide (Glipizide) 5 Mg Tab, 5 MG PO BID, MG BEFORE MEALS 09/13/21 Information Source: Patient, Emergency Med Personnel Mode of Arrival: EMS Severity: Moderate Timing: Hours Duration: Since onset Prehospital treatment: 12 Lead EKG, Accucheck Past Medical History PAST MEDICAL HISTORY: Asthma, CAD, COPD, DM, HTN Surgical History: PTCA Family History Family History: Reviewed,noncontributory to illness, Family hx of Cancer Social History Smoker: Non-Smoker, Quit Greater Than 1 Year Alcohol: Denies ETOH Use Drugs: Denies Drug Use Lives In: Home Constitutional: reports: fatigue, weakness; denies: chills, diaphoresis, fever, malaise, sweats, others EENTM: denies: blurred vision, double vision, ear bleeding, ear discharge, ear drainage, ear pain, ear ringing, eye pain, eye redness, hearing loss, mouth pain, mouth swelling, nasal discharge, nose bleeding, nose congestion, nose pain, photophobia, tearing, throat pain, throat swelling, voice changes, others Respiratory: denies: cough, hemoptysis, orthopnea, SOB at rest, shortness of breath, SOB with excertion, stridor, wheezing, others Cardiovascular: denies: chest pain, dizzy spells, diaphoresis, Dyspnea on exertion, edema, irregular heart beat, left arm pain, lightheadedness, palpitations, PND, syncope, others Gastrointestinal: denies: abdomen distended, abdominal pain, blood streaked bowels, constipated, diarrhea, dysphagia, difficulty swallowing, hematemesis, melena, nausea, poor appetite, poor fluid intake, rectal bleeding, rectal pain, vomiting, others Genitourinary: denies: burning, dysuria, flank pain, frequency, hematuria, incontinence, penile discharge, penile sore, pain, testicle pain, testicle swelling, urgency, others Neurological: denies: dizziness, fainting, headache, left sided numbness, left sided weakness, numbness, paresthesia, pre-existing deficit, right sided numbness, right sided weakness, seizure, speech problems, tingling, tremors, weakness, others Musculoskeletal: denies: back pain, gout, joint pain, joint swelling, muscle pain, muscle stiffness, neck pain, others Integumetry: denies: bruises, change in color, change in hair/nails, dryness, laceration, lesions, lumps, rash, wounds, others Allergic/Immunocompromised: denies: Difficulty Healing, Frequent Infections, Hives, Itching, others Hematologic/Lymphatic: denies: anemia, blood clots, easy bleeding, easy bruising, swollen glands, others Endocrine: denies: excessive hunger, excessive sweating, excessive thirst, excessive urination, flushing, intolerance to cold, intolerance to heat, unexplained weight gain, unexplained weight loss, others Psychiatric: denies: anxiety, bipolar disorder, depression, hopeless, panic disorder, schizophrenia, sleepless, suicidal, others All Other Systems: Reviewed and Negative Physical Exam General Appearance: Moderate Distress HEENT: Normal ENT Inspection, Pharynx Normal, TMs Normal Neck: Full Range of Motion, Non-Tender, Normal, Normal Inspection Respiratory: Chest Non-Tender, Lungs Clear, No Accessory Muscle Use, No Respiratory Distress, Normal Breath Sounds Cardiovascular: No Edema, No JVD, No Murmur, No Gallop, Normal Peripheral Pulses, Regular Rate/Rhythm Breast Exam: Deferred Gastrointestinal: No Organomegaly, Non Tender, No Pulsatile Mass, Normal Bowel Sounds, Soft Genitalia: Deferred Pelvic: Deferred Rectal: Deferred Extremities: Normal inspection Musculoskeletal : Apperance: Normal Neurologic: Alert Cerebellar Function: NOT DONE Reflexes: NOT DONE Skin: Dry, Normal Color, Warm Peripheral Pulses: 3+ Radial (R), 3+ Radial (L) Lymphatic: No Adenopathy Was a procedure done? Was a procedure done?: No Differential Dx Considerations may include: syncopal episode Electrolyte imbalance X-Ray, Labs, Meds, VS Vital Signs Date Time Temp Pulse Resp B/P (MAP) Pulse Ox O2 Delivery O2 Flow Rate FiO2 12/16/24 12:10 79 Lab Test 12/16/24 13:10 Range/Units White Blood Count 8.7 4.4-10.8 10^3/uL Red Blood Count 4.74 4.5-5.90 10^6/uL Hemoglobin 14.8 13.5-17.5 g/dL Hematocrit 44.2 41.0-53.0 % Mean Corpuscular Volume 93.4 80.0-100.0 fL Mean Corpuscular Hemoglobin 31.1 28.0-32.0 pg Mean Corpuscular Hemoglobin Concent 33.4 32.0-36.0 g/dL Red Cell Distribution Width 15.6 H 11.8-14.3 % Platelet Count 244 140-450 10^3/uL Mean Platelet Volume 8.5 6.9-10.8 fL Neutrophils (%) (Auto) 76.7 37.0-80.0 % Lymphocytes (%) (Auto) 16.8 10.0-50.0 % Monocytes (%) (Auto) 4.6 0.0-12.0 % Eosinophils (%) (Auto) 1.2 0.0-7.0 % Basophils (%) (Auto) 0.7 0.0-2.0 % Neutrophils # (Auto) 6.7 1.6-8.6 10 ^3/uL Lymphocytes # (Auto) 1.5 0.4-5.4 10 ^3/uL Monocytes # (Auto) 0.4 0-1.3 10 ^3/uL Eosinophils # (Auto) 0.1 0-0.8 10 ^3/uL Basophils # (Auto) 0.1 0-0.2 10 ^3/uL Nucleated Red Blood Cells 0.1 % Sodium Level 136 136-145 mmol/L Potassium Level 4.1 3.5-5.1 mmol/L Chloride Level 99 98-107 mmol/L Carbon Dioxide Level 26 20-31 mmol/L Anion Gap 11 5-15 Blood Urea Nitrogen 22 9-23 mg/dL Creatinine 1.01 0.700-1.30 mg/dL Glomerular Filtration Rate Calc 72 >90 mL/min BUN/Creatinine Ratio 21.8 H 10.0-20.0 Serum Glucose 196 H 74-106 mg/dL Calcium Level 9.5 8.7-10.4 mg/dL Troponin I High Sensitivity 96 *H </=54 ng/L [address] [address] Ph: [phone] DIAGNOSTIC IMAGING Diagnostic Imaging Report : [id number] Signed PATIENT: RADHA ORRCCT: [id number] UNIT: [id number] : 1935 LOC: ER ROOM / BED: / AGE / SEX: 89 / M ADM STATUS: REG ER SERVICE 1211 ORDERING PHYSICIAN: JOSSELINE HOANG MD PROCEDURE(s): CXRP - CHEST PORTABLE REASON: sob ORDER NUMBER(s): [id number], ACCESSION NUMBER(s): [id number] CHEST RADIOGRAPH Indication: sob Technique: Single frontal view of the chest was obtained COMPARISON: XY CHEST XRAY 1 VIEW on DOS: 01/24/23, CXRP on DOS: 10/01/22, CHEST PORTABLE on DOS: 10/01/22, CHSTU on DOS: 09/30/22, CHEST PORTABLE on DOS: 09/30/22 FINDINGS: Lines and Tubes: None Lungs: Multifocal airspace disease Pleura: No effusion. No pneumothorax. Cardiomediastinal contours: Cardiomegaly Bones: Unremarkable IMPRESSION: Pulmonary vascular congestion and/or multifocal airspace disease. ATED BY: JAVID BAIRD MD DICTATED DATE/TIME: 12/16/24 1238 SIGNED BY: JAVID BAIRD MD SIGNED DATE/TIME: 12/16/24 1238 CC: Patient stable. Had syncope. Had CPR prior to coming. No sign of any injury. Possible vasovagal syncope. Family not at bedside. Blood sugar slightly elevated. Establish intravenous access Was given fluids. Reviewed his history. Continue cardiac monitoring. EKG reviewed does not show any acute changes. He started to have low saturation. Placed him on oxygen. Was given Lasix. Time of 1ST Reevaluation: 12:30 Reevaluation 1ST: Unchanged Patient Education/Counseling: Diagnosis, Treatment Family Education/Counseling: No Family Present Additional Information I reviewed the following notes from patient's past medical encounters: 01/24/23 DX:LOW BLOOD SUGAR The following tests were ordered, and results were reviewed by me: CBC, UA, BMP, TROPONIN, CXR I reviewed and agreed with the following test results read by other providers: CXR Additional Information was gathered from interviewing the following independent historians: EMS I discussed treatment and results with medical personnel and: FAMILY Departure 1 Departure Time of Disposition: 12:25 Impression: Primary Impression: Metabolic encephalopathy Additional Impressions: Uncontrolled diabetes mellitus Qualified Codes: E13.65 - Other specified diabetes mellitus with hyperglycemia Diastolic heart failure Qualified Codes: I50.33 - Acute on chronic diastolic (congestive) heart failure Disposition: ADMITTED INPATIENT Admit to: Med Surg Condition: Guarded Critical Care Note Critical Care Time?: No Stability Stability form required: No Heart Score Heart Score: Heart Score Response (Comments) Value History Slightly Suspicious 0 EKG Normal 0 Age >65 2 Risk Factors >3 or Hx ASHD 2 Troponin Normal limit 0 Total 4 I personally scribed for JOSSELINE HOANG MD ([email or web address]) on 12/16/24 at 12:22. Electronically submitted by Dania Humphreys ([email or web address]). I personally scribed for JOSSELINE HOANG MD ([email or web address]) on 12/16/24 at 14:03. Electronically submitted by Dania Humphreys ([email or web address]). JOSSELINE HOANG MD Dec 16, 2024 12:22
--- NOTE | 2024-12-16 12:41 | DVH ---
CHEST RADIOGRAPH Indication: sob Technique: Single frontal view of the chest was obtained COMPARISON: XY CHEST XRAY 1 VIEW on DOS: 01/24/23, CXRP on DOS: 10/01/22, CHEST PORTABLE on DOS: 10/01, CHSTU on DOS: 09/30/22, CHEST PORTABLE on DOS: 09/30/22 FINDINGS: Lines and Tubes: None Lungs: Multifocal airspace disease Pleura: No effusion. No pneumothorax. Cardiomediastinal contours: Cardiomegaly Bones: Unremarkable IMPRESSION: Pulmonary vascular congestion and/or multifocal airspace disease.
[2024-12-16 13:32] LABS: Basophils # (auto) 0.1 10 ^3/uL (0-0.2); Basophils % (auto) 0.7 % (0.0-2.0); Eosinophils # (auto) 0.1 10 ^3/uL (0-0.8); Eosinophils % (auto) 1.2 % (0.0-7.0); Hematocrit 44.2 % (41.0-53.0); Hemoglobin 14.8 g/dL (13.5-17.5); Lymphocytes # (auto) 1.5 10 ^3/uL (0.4-5.4); Lymphocytes % (auto) 16.8 % (10.0-50.0); Mean Corpuscular Hemoglobin 31.1 pg (28.0-32.0); Mean Corpuscular Hgb Conc. 33.4 g/dL (32.0-36.0); Mean Corpuscular Volume 93.4 fL (80.0-100.0); Monocytes # (auto) 0.4 10 ^3/uL (0-1.3); Monocytes % (auto) 4.6 % (0.0-12.0); Neutrophils # (auto) 6.7 10 ^3/uL (1.6-8.6); Neutrophils % (auto) 76.7 % (37.0-80.0); Nucleated Red Blood Cells % 0.1 %; Platelet Count (auto) 244 10^3/uL (140-450); Red Blood Cells 4.74 10^6/uL (4.5-5.90); Red Cell Distribution Width 15.6 % (11.8-14.3); White Blood Cell 8.7 10^3/uL (4.4-10.8)
[2024-12-16 13:40] LABS: Chloride 99 mmol/L (98-107); Potassium 4.1 mmol/L (3.5-5.1); Sodium 136 mmol/L (136-145)
[2024-12-16 13:41] LABS: Anion Gap 11 (5-15); Carbon Dioxide 26 mmol/L (20-31)
[2024-12-16 13:42] LABS: Calcium 9.5 mg/dL (8.7-10.4)
[2024-12-16 13:47] LABS: BUN/Creatinine Ratio 21.8 (10.0-20.0); Blood Urea Nitrogen 22 mg/dL (9-23)
[2024-12-16 13:59] LABS: Glucose 196 mg/dL (74-106)
[2024-12-16] MEDS: FUROSEMIDE 20 MG/2 ML VIAL IV ONE (15:15)
[2024-12-16] MEDS ORDERED: DOCUSATE SOD 100 MG CAP PO PRN (22:15)
[2024-12-16] MEDS ORDERED: DEXTROSE (50%) 50ML SYRG IV PRN (22:15)
[2024-12-16] MEDS ORDERED: ONDANSETRON HCL 4 MG/2 ML VIAL IV PRN (22:15)
[2024-12-16] MEDS ORDERED: NITROGLYCERIN 0.4 MG SL TAB SL PRN (22:15)
[2024-12-16] MEDS ORDERED: HYDROcodone-ACET 5/325MG TAB PO PRN (22:15)
[2024-12-16] MEDS ORDERED: MORPHINE SULFATE INJ 2 MG/ml SYRG IV PRN (22:15)
[2024-12-16] MEDS ORDERED: ACETAMINOPHEN 325 MG TAB PO PRN (22:15)
--- NOTE | 2024-12-16 22:19 | DVHHP2 ---
History of Present Illness Reason for Visit: Syncopal episode History of Present Illness The patient is a 89-year-old male with past medical history of Coronary artery disease, COPD, DM, hypertension, and asthma who presented to [facility] ED for evaluation of syncopal episode. Patient reports, he was using the restroom at home when he began to wipe himself clean he felt weak causing him to pass out and lose consciousness and was found unresponsive by family member. Family began cardiopulmonary resuscitation until patient regained consciousness shortly after the emergency medical personnel was called. Patient was seen and evaluated in the ED, laboratory data shows WBC 8.7, platelets 244, sodium 136, potassium 4.1, BUN 22, creatinine 1.01, glucose 196, troponin 96, blood pressure 120/91, heart rate 95, temperature 98.4 F, O2 saturation 97% on room air. Chest x-ray revealing pulmonary vascular congestion and/or multifocal airspace disease. Please see medication orders section in the computer Past Medical History Asthma, CAD, COPD, DM, HTN Past Surgical History PTCA Family History Reviewed, noncontributory to the management of this case. Past Social History The patient lives at home, denies smoking, alcohol or illicit drugs abuse. Review of Systems Constitutional: Yes: Weakness, Other (Fatigue); No: Fever, Chills, Sweats, Malaise Eyes: No: Pain, Vision change, Conjunctivae inflammation, Eyelid inflammation, Other, Redness ENT: No: Ear pain, Ear discharge, Nose pain, Nose discharge, Nose congestion, Mouth pain, Mouth swelling, Throat pain, Throat swelling, Other Respiratory: No: Cough, Dry, Shortness of breath, SOB with excertion, Wheezing, Hemoptysis, Pleuritic Pain, Sputum, Wheezing, Other Cardiovascular: No: Chest Pain, Palpitations, Orthopnea, Paroxysmal Noc. Dyspnea, Edema, Lt Headedness, Other Gastrointestinal: No: Nausea, Vomiting, Abdominal Pain, Diarrhea, Constipation, Melena, Hematochezia, Other Genitourinary: No Dysuria, No Frequency, No Incontinence, No Hematuria, No Retention, No Other Musculoskeletal: No: other, neck pain, shoulder pain, arm pain, back pain, hand pain, leg pain, foot pain Skin: No: Rash, Lesions, Jaundice, Bruising, Other Neurological: No: Weakness, Numbness, Incoordination, Change in speech, Confusion, Seizures, Other Allergies: Coded Allergies: NO KNOWN ALLERGIES (Unverified , 09/12/21) Medications Current Medications Medications Dose Ordered Sig/Sintia Route Start Time Stop Time Status Last Admin Dose Admin Aspirin 81 mg DAILY PO 12/17/24 10:00 UNV Diagnostic Test (Pha) 1 strip ACHS 12/17/24 07:00 UNV Insulin Human Regular HS SC 12/17/24 22:00 UNV Insulin Human Regular AC SC 12/17/24 07:00 UNV Dextrose 50 ml UD PRN IV 12/16/24 22:15 UNV Sodium Chloride 1,000 ml @ 60 mls/hr [id number] IV 12/16/24 22:15 UNV Acetaminophen/ Hydrocodone Bitart 1 tab Q4HP PRN PO 12/16/24 22:15 UNV Ondansetron HCl 4 mg Q4HP PRN IV 12/16/24 22:15 UNV Docusate Sodium 100 mg BIDPRN PRN PO 12/16/24 22:15 UNV Acetaminophen 650 mg Q6HP PRN PO 12/16/24 22:15 UNV Nitroglycerin 0.4 mg Q5MINP PRN SL 12/16/24 22:15 UNV Morphine Sulfate 2 mg Q30M PRN IV 12/16/24 22:15 UNV Hydralazine HCl 10 mg Q6HP PRN IV 12/16/24 22:30 UNV Exam Vital Signs Vital Signs Date Time Temp Pulse Resp B/P (MAP) Pulse Ox O2 Delivery O2 Flow Rate FiO2 12/16/24 21:30 98.0 94 16 148/80 (102) 98 98.0 12/16/24 20:00 Room Air* 0 21 General Appearance: Alert, Oriented X3, Cooperative, No acute distress HEENT: Atraumatic, PERRLA, EOMI, Mucous membr. moist/pink Respiratory: Normal air movement, Other (Diminished breath sounds) Cardiovascular: Regular rate, Normal S1, Normal S2, No murmurs Abdominal: Normal bowel sounds, Soft, No tenderness, No hepatospenomegaly, No masses Extremities: No clubbing, No cyanosis, No edema, Normal pulses, No tenderness/swelling Skin: No rashes, No significant lesion Neuro: Normal speech, Normal tone, Sensation intact, Cranial nerves 3-12 NL, Reflexes 2+, Other (Generalized weakness) Psych/Mental Status: Mental status NL, Mood NL Labs/Xrays Labs Test 12/16/24 15:43 12/16/24 13:10 Range/Units POC Glucose 228 H 70-106 mg/dl White Blood Count 8.7 4.4-10.8 10^3/uL Red Blood Count 4.74 4.5-5.90 10^6/uL Hemoglobin 14.8 13.5-17.5 g/dL Hematocrit 44.2 41.0-53.0 % Mean Corpuscular Volume 93.4 80.0-100.0 fL Mean Corpuscular Hemoglobin 31.1 28.0-32.0 pg Mean Corpuscular Hemoglobin Concent 33.4 32.0-36.0 g/dL Red Cell Distribution Width 15.6 H 11.8-14.3 % Platelet Count 244 140-450 10^3/uL Mean Platelet Volume 8.5 6.9-10.8 fL Neutrophils (%) (Auto) 76.7 37.0-80.0 % Lymphocytes (%) (Auto) 16.8 10.0-50.0 % Monocytes (%) (Auto) 4.6 0.0-12.0 % Eosinophils (%) (Auto) 1.2 0.0-7.0 % Basophils (%) (Auto) 0.7 0.0-2.0 % Neutrophils # (Auto) 6.7 1.6-8.6 10 ^3/uL Lymphocytes # (Auto) 1.5 0.4-5.4 10 ^3/uL Monocytes # (Auto) 0.4 0-1.3 10 ^3/uL Eosinophils # (Auto) 0.1 0-0.8 10 ^3/uL Basophils # (Auto) 0.1 0-0.2 10 ^3/uL Nucleated Red Blood Cells 0.1 % Sodium Level 136 136-145 mmol/L Potassium Level 4.1 3.5-5.1 mmol/L Chloride Level 99 98-107 mmol/L Carbon Dioxide Level 26 20-31 mmol/L Anion Gap 11 5-15 Blood Urea Nitrogen 22 9-23 mg/dL Creatinine 1.01 0.700-1.30 mg/dL Glomerular Filtration Rate Calc 72 >90 mL/min BUN/Creatinine Ratio 21.8 H 10.0-20.0 Serum Glucose 196 H 74-106 mg/dL Calcium Level 9.5 8.7-10.4 mg/dL Troponin I High Sensitivity 96 *H </=54 ng/L PATIENT: RADHA ORRCCT: [id number] UNIT: [id number] : 1935 LOC: ER ROOM / BED: / AGE / SEX: 89 / M ADM STATUS: REG ER SERVICE 1211 ORDERING PHYSICIAN: JOSSELINE HOANG MD PROCEDURE(s): CXRP - CHEST PORTABLE REASON: sob ORDER NUMBER(s): [id number], ACCESSION NUMBER(s): [id number] CHEST RADIOGRAPH Indication: sob Technique: Single frontal view of the chest was obtained COMPARISON: XY CHEST XRAY 1 VIEW on DOS: 01/24/23, CXRP on DOS: 10/01/22, CHEST PORTABLE on DOS: 10/01/22, CHSTU on DOS: 09/30/22, CHEST PORTABLE on DOS: 09/30/22 FINDINGS: Lines and Tubes: None Lungs: Multifocal airspace disease Pleura: No effusion. No pneumothorax. Cardiomediastinal contours: Cardiomegaly Bones: Unremarkable IMPRESSION: Pulmonary vascular congestion and/or multifocal airspace disease. Assessment/Plan Assessment/Plan Metabolic encephalopathy Elevated troponin Uncontrolled diabetes mellitus Other specified diabetes mellitus with hyperglycemia Plan 1. Admit to telemetry unit 2. Breathing treatment 3. Pain control management 4. Management of fluids and electrolytes 5. Consultation for Cardiology 6. Diagnostic tests chest x-ray 7. DVT prophylaxis-on aspirin 8. Repeat labs CBC, CMP in a.m. 9. Continue with current medical management 10. Treatment plan discussed with patient and RN. Patient verbalized understanding. Plan discussed with: Patient, Other (RN) My Orders Orders - STORMY LEWIS DNP Procedure Category Date Status Time Consistent DIET 12/17/24 Transmitted Carb(Ccho)Diabetes Breakfast Aspirin Tablet PHA 12/17/24 Logged 10:00 Aspirin Tablet PHA 12/16/24 Logged 22:15 * Cardiology Consult CONS 12/16/24 Transmitted 22:08 Glucose Blood PHA 12/17/24 Logged (Accu-Chek Comfort 07:00 Insulin R (Human) PHA 12/17/24 Logged (Insulin R) 22:00 Insulin R (Human) PHA 12/17/24 Logged (Insulin R) 07:00 Dextrose 50% Syringe PHA 12/16/24 Logged 22:15 Admit ADMIT 12/16/24 Transmitted 22:08 Allergies LAMAR 12/16/24 In Process 22:08 Code Status CODE 12/16/24 Transmitted 22:08 Sodium Chloride 0.9% PHA 12/16/24 Logged 22:15 Oxygen Per Hour RT 12/16/24 Transmitted 22:08 Hydrocodone-Acet PHA 12/16/24 Logged 5/325mg Tab ([place] 22:15 Ondansetron Hcl PHA 12/16/24 Logged (Zofran) 22:15 Docusate Sodium PHA 12/16/24 Logged Capsule (Colace 22:15 Fall Risk Precautions LAMAR 12/16/[address] 22:08 Complete Blood Count LAB 12/17/24 Verified 04:00 Comprehensive LAB 12/17/24 Verified Metabolic Panel 04:00 Condition: Serious LAMAR 12/16/24 In Process 22:08 Acetaminophen Tablet PHA 12/16/24 Logged (Tylenol Tablet) 22:15 Sequential LAMAR 12/16/24 In Process Compression Device Nitroglycerin PHA 12/16/24 Logged Sublingual (Ntrostat 22:15 Morphine Sulfate PHA 12/16/24 Logged Injection 22:15 Notify Of Changes [facility] 12/16/24 In Process From Base 22:08 Acoustics Teacher For [facility] 12/16/24 In Process 24 Hours 22:08 Emergency Dysrhythmia [facility] 12/16/24 In Process Protocol 22:08 Rhythm Strips Once LAMAR 12/16/24 In Process Every Shift 22:08 Oxygen By Nasal RT 12/16/24 Transmitted Cannula 22:08 Hydralazine Injection PHA 12/16/24 Logged (Apresoline Inject 22:30 Troponin-I Hs LAB 12/16/24 Verified 23:17 Troponin-I Hs LAB 12/17/24 Verified 02:00 Problem List: (1) Metabolic encephalopathy (2) Uncontrolled diabetes mellitus (3) Elevated troponin (4) Other specified diabetes mellitus with hyperglycemia Date of Service: Dec 16, 2024 Billing Provider: STORMY LEWIS DNP Common Visit Codes: 54347-[id number] INP/OBS CARE (HIGH) STORMY LEWIS DNP Dec 16, 2024 22:19
[2024-12-16] MEDS ORDERED: hydrALAZINE HCL 20 MG/ML VL IV PRN (22:30)
[2024-12-16 22:34] LABS: Urine Bacteria None Seen /hpf (None Seen)
[2024-12-16 22:39] LABS: Urine Blood Negative /uL (Negative); Urine Clarity Clear (Clear); Urine Color Colorless (Yellow); Urine Protein, UAD Negative (Negative); Urine Specific Gravity 1.008 (1.001-1.035); Urine Squamous Epithelial Cell None Seen /hpf (<5); Urine Urobilinogen Normal (Negative); Urine pH 5.5 (5.0-9.0)
[2024-12-16 23:50] VITALS: PULSE 104; RESP 93; O2SAT 93
[2024-12-17] VITALS (14 sets, daily range): BP systolic 115–148; BP diastolic 58–93; PULSE 61–104; RESP 16–22; TEMP 97.5–98; O2SAT 17–98
[2024-12-17] MEDS: ASPirin 81 mg TAB PO ONE (00:47)
[2024-12-17] MEDS: SODIUM CHLORIDE 0.9% 1,000 ML IV SCH (00:47)
[2024-12-17] MEDS: ACCU-CHEK COMFORT CURVE STRIP VI SCH (05:59)
[2024-12-17] MEDS: InsuLIN REG 1unit/0.01ml Soln (100units/ml) SC SCH ×2 (06:00→22:54)
[2024-12-17 07:28] LABS: Basophils # (auto) 0.1 10 ^3/uL (0-0.2); Basophils % (auto) 0.9 % (0.0-2.0); Eosinophils # (auto) 0.2 10 ^3/uL (0-0.8); Eosinophils % (auto) 1.9 % (0.0-7.0); Hematocrit 40.4 % (41.0-53.0); Hemoglobin 13.5 g/dL (13.5-17.5); Lymphocytes # (auto) 2.5 10 ^3/uL (0.4-5.4); Mean Corpuscular Hemoglobin 31.4 pg (28.0-32.0); Mean Corpuscular Hgb Conc. 33.5 g/dL (32.0-36.0); Mean Corpuscular Volume 93.8 fL (80.0-100.0); Monocytes # (auto) 0.5 10 ^3/uL (0-1.3); Monocytes % (auto) 5.7 % (0.0-12.0); Neutrophils # (auto) 5.5 10 ^3/uL (1.6-8.6); Neutrophils % (auto) 62.5 % (37.0-80.0); Nucleated Red Blood Cells % 0.2 %; Platelet Count (auto) 204 10^3/uL (140-450); Red Cell Distribution Width 15.8 % (11.8-14.3); White Blood Cell 8.8 10^3/uL (4.4-10.8)
[2024-12-17 07:43] LABS: Alanine Aminotransferase 22 U/L (7-40); Albumin 3.8 g/dL (3.2-4.8); Alkaline Phosphatase 76 U/L (46-116); Anion Gap 8 (5-15); Aspartate Aminotransferase 21 U/L (13-40); BUN/Creatinine Ratio 12.3 (10.0-20.0); Bilirubin, Total 0.8 mg/dL (0.2-1.0); Blood Urea Nitrogen 10 mg/dL (9-23); Calcium 9.1 mg/dL (8.7-10.4); Carbon Dioxide 24 mmol/L (20-31); Chloride 105 mmol/L (98-107); Glucose 141 mg/dL (74-106); Sodium 137 mmol/L (136-145); Total Protein 6.7 g/dL (5.7-8.2)
--- NOTE | 2024-12-17 08:21 | ECG ---
[facility] Test Date: 2024-12-16 Test Time: 12:08:07 Pat Name: KATHERINE CHAMBERS Department: ED Room: 0246T B Gender: M Director Sports: TMI : 1935 Requested By: JOSSELINE HOANG Order Number: [id number] Reading MD: Sabino Steel Measurements Intervals [place] Rate: 79 P: 0 NC: 229 QRS: 87 QRSD: 93 T: 133 QT: 400 QTc: 459 Interpretive Statements Sinus rhythm Prolonged NC interval Borderline right axis deviation Nonspecific repol abnormality, diffuse leads Baseline wander in lead(s) V6 Electronically Signed On 12-17-2024 12:10:19 PST by Sabino Steel Please click the below link to view image of tracing.
--- NOTE | 2024-12-17 08:31 | ECG ---
[facility] Test Date: 2024-12-17 Test Time: 01:16:06 Pat Name: KATHERINE CHAMBERS Department: Respiratoy Room: 0246T B Gender: M Tester Vibrator Equipment: Madiha : 1935 Requested By: STORMY LEWIS Order Number: [id number] Reading MD: Sabino Steel Measurements Intervals [place] Rate: 66 P: -32 MT: 282 QRS: 75 QRSD: 88 T: -4 QT: 429 QTc: 450 Interpretive Statements Sinus rhythm Prolonged MT interval Repol abnrm suggests ischemia, anterolateral Electronically Signed On 12-17-2024 12:09:05 PST by Sabino Steel Please click the below link to view image of tracing.
--- NOTE | 2024-12-17 09:31 | DVH ---
Carotid Duplex Date: 12/17/2024 08:54 AM Clinical History: syncope Comparison: None Technique: Duplex Doppler evaluation of the extracranial carotid and vertebral arteries including color Doppler and spectral/pulsed waveform analysis was performed. Findings: RIGHT SIDE: The peak systolic velocities are 66 cm/s in the distal CCA and 47 cm/s in the proximal ICA.The ICA/CC A ratio is less than 1. The external carotid artery is patent with peak systolic velocity of 95 cm/s proximally. There is appropriate antegrade flow in the right vertebral artery. LEFT SIDE: The peak systolic velocities are 57 cm/s in the distal CCA and 47 cm/s in the proximal ICA.. The ICA /CCA ratio is less than 1. The external carotid artery is patent with peak systolic velocity of 84 cm/s proximally. There is appropriate antegrade flow in the left vertebral artery. IMPRESSION: No hemodynamically significant stenosis noted in the right carotid system. No hemodynamically significant stenosis noted in the left carotid system. Reference: Radiology 2003; 229:340-346
[2024-12-17] MEDS: ASPirin 81 mg TAB PO SCH (10:50)
[2024-12-17] MEDS: methylPREDNISolone SOD SUCC 40 MG/ML VL IV ONE (11:00)
[2024-12-17 11:03] LABS: Magnesium 1.7 mg/dL (1.6-2.6)
[2024-12-17] MEDS: cefTRIAXone 1GM/50ML D5W 50 ML IV ONE (12:21)
[2024-12-17] MEDS: EMPAGLIFLOZIN 10 MG TAB PO SCH (12:23)
[2024-12-17] MEDS: FUROSEMIDE 40 MG TAB PO ONE (12:29)
[2024-12-17] MEDS: AZITHROMYCIN 250 MG TAB PO ONE (12:30)
[2024-12-17] MEDS: LEVALBUTEROL HCL 1.25 MG/3 ML NEB NEB SCH (12:35)
[2024-12-17] MEDS: IPRATROPIUM BROM 0.5 MG/2.5ML INH SOL NEB SCH (12:35)
--- NOTE | 2024-12-17 16:48 | DVHINCON2 ---
Date Seen: Dec 17, 2024 Referring Physician JENNIFER Hall Reason for Consultation Syncope History of Present Illness This is an 89-year-old Chinese-speaking male who presents to the emergency room for chief complaint of syncopal episode. According to the patient, he was in the restroom cleaning himself up after having an incontinent episode and suddenly began to feel dizzy. He reports he was walking back to his room from the restroom and continued to feel dizzy. He reports making it back to his room in which he sat down and called out for his daughter. He states that he continued feeling extremely short of breath at this point in time, told his daughter he needed his oxygen. The patient then reports losing consciousness. Confirmed story with patients daughter, Swapna. Per patient's daughter, she reports that once the patient sat down, his head went back as if he was staring at the ceiling and he appeared to be unresponsive. The patient's daughter states that she panicked and immediately initiated CPR and put oxygen on the patient. She denies ever checking if the patient lost a pulse. She reports that within 2 minutes the patient was responsive again. He was brought to the emergency room for further evaluation. Cardiology has now been consulted for syncope. Initial twelve lead electrocardiogram reveals normal sinus rhythm with first-degree AV block and with nonspecific ST segment changes to anterior leads. Initial troponin level of 96ng/L with up trend and peak level at 153ng/L. 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 The patient does not see a mechanical commissioning engineer in the outpatient setting. Past Medical History Past medical history reviewed. No other significant than mentioned above. Past Surgical History PTC with stenting of LAD and circumflex Family History Family history reviewed. Social History Patient has a 60 pack-year history, quit smoking approximately 10 years ago Patient denies any illicit drug use Patient denies any alcohol use Allergies: Coded Allergies: NO KNOWN ALLERGIES (Unverified , 09/12/21) Home Meds Active Scripts Oseltamivir Phosphate (Tamiflu) 75 Mg Cap, 1 CAP PO BID, #10 CAP Prov:YARIEL HOLT MD 10/04/22 Azithromycin (Azithromycin) 500 Mg Tab, 1 TAB PO DAILY, #5 TAB Prov:YARIEL HOLT MD 10/04/22 Cephalexin (KEFLEX 500) 500 Mg Cap, 1 CAP PO TID for 3 Days, #9 CAP Prov:SADAF GOODSON MD 04/26/22 Prednisone (Prednisone) 20 Mg Tab, 20 MG PO BID for 5 Days, #10 TAB Prov:SADAF GOODSON MD 04/26/22 Reported Medications Atorvastatin Calcium (ATORVASTATIN CALCIUM) 20 Mg Tab, 1 TAB PO DAILY 09/30/22 Clopidogrel Bisulfate (CLOPIDOGREL) 75 Mg Tab, 1 TAB PO DAILYPRN 09/27/22 Fluticasone Furoate-Vilanterol (BREO ELLIPTA) 1 Inh Inh, 1 PUFF IN DAILY, INHALER DOSE 100/25 MCG 04/23/22 Metformin HCl (Metformin Hydrochloride) 1,000 Mg Tab, 1000 MG PO BID, TAB 04/23/22 Albuterol Sulfate (Albuterol Sulfate Hfa) 108 Mcg/Act Aer, 2 PUFF PO PRN for SHORTNESS OF BREATH EVERY 4 TO 6 HOURS NEEDED 04/20/22 Omeprazole (Omeprazole Dr) 20 Mg Cap, 1 CAP PO DAILY 04/20/22 Benazepril Hcl (Benazepril Hcl) 10 Mg Tab, 10 MG PO DAILY, MG 09/13/21 Glipizide (Glipizide) 5 Mg Tab, 5 MG PO BID, MG BEFORE MEALS 09/13/21 Home Meds Home medications reviewed. Current Medications Current Medications Medications (Trade) Dose Ordered Sig/Sintia Route PRN Reason Start Time Stop Time Status Last Admin Aspirin 81 mg DAILY PO 12/17/24 10:00 12/17/24 10:50 Diagnostic Test (Pha) (Accu-Chek Comfort Curve T) 1 strip ACHS 12/17/24 07:00 12/17/24 11:30 Insulin Human Regular (InsuLIN R) HS SC 12/17/24 22:00 Insulin Human Regular (InsuLIN R) AC SC 12/17/24 07:00 12/17/24 12:04 Dextrose 50 ml UD PRN IV Blood Sugar LESS THAN 60 12/16/24 22:15 Sodium Chloride 1,000 ml @ 60 mls/hr [id number] IV 12/16/24 22:15 12/17/24 08:28 DC 12/17/24 00:47 Acetaminophen/ Hydrocodone Bitart ([place] 5/325MG Tab) 1 tab Q4HP PRN PO MODERATE PAIN (4-6 PAIN SCALE) 12/16/24 22:15 12/17/24 08:28 DC Ondansetron HCl (Zofran) 4 mg Q4HP PRN IV NAUSEA / VOMITING 12/16/24 22:15 Docusate Sodium (Colace Capsule) 100 mg BIDPRN PRN PO FOR CONSTIPATION 12/16/24 22:15 12/17/24 08:28 DC Acetaminophen (Tylenol Tablet) 650 mg Q6HP PRN PO PAIN SCALE 1-3 OR TEMP>100.4 12/16/24 22:15 12/17/24 08:28 DC Nitroglycerin (Ntrostat Sublingual) 0.4 mg Q5MINP PRN SL FOR CHEST PAIN 12/16/24 22:15 Morphine Sulfate 2 mg Q30M PRN IV FOR CHEST PAIN 12/16/24 22:15 Hydralazine HCl (Apresoline Injection) 10 mg Q6HP PRN IV SBP>150 12/16/24 22:30 12/17/24 08:28 DC Azithromycin (Zithromax Tablet) 500 mg DAILY PO 12/18/24 10:00 Ceftriaxone Sodium 50 ml @ 100 mls/hr DAILY@09 IV 12/18/24 09:00 Levalbuterol HCl (Xopenex Medneb) 1.25 mg Q6HR NEB 12/17/24 12:00 12/17/24 12:35 Ipratropium [place] (Atrovent Medneb) 0.5 mg Q6HR NEB 12/17/24 12:00 12/17/24 12:35 Methylprednisolone Sodium Succinate (Solu Medrol) 40 mg BID IV 12/17/24 22:00 Empaglifozin (Jardiance) 10 mg DAILY PO 12/17/24 11:00 12/17/24 12:23 Review of Systems Constitutional: No symptom reported Ears, Nose, & Throat: No symptom reported Eyes: No symptom reported Neurological: Syncope Pulmonary/Respiratory: No symptoms reported Cardiovascular: No symptom reported Gastrointestinal: No symptom reported Genitourinary: No symptom reported Musculoskeletal: No symptom reported Skin: No symptom reported Psychiatric: No symptom reported Endocrine: No symptom reported Hematologic/Lymphatic: No symptom reported Vital Signs Vital Signs Date Time Temp Pulse Resp B/P (MAP) Pulse Ox O2 Delivery O2 Flow Rate FiO2 2/7/25 13:00 97.9 75 18 134/70 (91) 95 97.9 12/17/24 12:35 2.0 28 12/17/24 12:35 Nasal Cannula Physical Exam General Appearance: Cooperative. Well-developed. Well-nourished. No acute distress. Pulmonary/Respiratory: Clear, bilateral breaths sounds. Cardiovascular/Chest: Regular rate and rhythm. Peripheral Pulses: 2+ Radial (R). 2+ Radial (L). 2+ Pedal (R). 2+ Pedal (L) Abdominal Exam: Normal bowel sounds. Ankle Exam: Negative ankle edema Lower extremities: Negative lower extremity edema Neuro/Mental Status: A/OX3, coherent. Thoughts/Psych: Normal thought pattern. Appropriate mood and affect. Good judgment and insight. Appearance: No acute distress. Skin Exam: Normal inspection. Normal color. Warm and dry. Labs/Diagnostic Data Labs Test 12/17/24 11:44 12/17/24 07:00 12/17/24 02:13 12/16/24 22:00 Range/Units POC Glucose 181 H 70-106 mg/dl White Blood Count 8.8 4.4-10.8 10^3/uL Red Blood Count 4.30 L 4.5-5.90 10^6/uL Hemoglobin 13.5 13.5-17.5 g/dL Hematocrit 40.4 L 41.0-53.0 % Mean Corpuscular Volume 93.8 80.0-100.0 fL Mean Corpuscular Hemoglobin 31.4 28.0-32.0 pg Mean Corpuscular Hemoglobin Concent 33.5 32.0-36.0 g/dL Red Cell Distribution Width 15.8 H 11.8-14.3 % Platelet Count 204 140-450 10^3/uL Mean Platelet Volume 8.7 6.9-10.8 fL Neutrophils (%) (Auto) 62.5 37.0-80.0 % Lymphocytes (%) (Auto) 29.0 10.0-50.0 % Monocytes (%) (Auto) 5.7 0.0-12.0 % Eosinophils (%) (Auto) 1.9 0.0-7.0 % Basophils (%) (Auto) 0.9 0.0-2.0 % Neutrophils # (Auto) 5.5 1.6-8.6 10 ^3/uL Lymphocytes # (Auto) 2.5 0.4-5.4 10 ^3/uL Monocytes # (Auto) 0.5 0-1.3 10 ^3/uL Eosinophils # (Auto) 0.2 0-0.8 10 ^3/uL Basophils # (Auto) 0.1 0-0.2 10 ^3/uL Nucleated Red Blood Cells 0.2 % Sodium Level 137 136-145 mmol/L Potassium Level 4.0 3.5-5.1 mmol/L Chloride Level 105 98-107 mmol/L Carbon Dioxide Level 24 20-31 mmol/L Anion Gap 8 5-15 Blood Urea Nitrogen 10 # 9-23 mg/dL Creatinine 0.81 0.700-1.30 mg/dL Glomerular Filtration Rate Calc 85 >90 mL/min BUN/Creatinine Ratio 12.3 10.0-20.0 Serum Glucose 141 H 74-106 mg/dL Hemoglobin A1c 6.6 H <5.7 % A1C Calcium Level 9.1 8.7-10.4 mg/dL Magnesium Level 1.7 1.6-2.6 mg/dL Total Bilirubin 0.8 0.2-1.0 mg/dL Aspartate Amino Transferase (AST) 21 13-40 U/L Alanine Aminotransferase (ALT) 22 7-40 U/L Alkaline Phosphatase 76 46-116 U/L B-Type Natriuretic Peptide 358.56 0-100 pg/mL Total Protein 6.7 5.7-8.2 g/dL Albumin 3.8 3.2-4.8 g/dL Triglycerides Level 105 < 150 mg/dL Cholesterol Level 138 < 200 mg/dL LDL Cholesterol 83 < 100 mg/dL HDL Cholesterol 47 40-59 mg/dL Thyroid Stimulating Hormone (TSH) 1.15 0.55-4.78 uIU/mL Troponin I High Sensitivity 153 *H </=54 ng/L Urine Color Colorless Yellow Urine Clarity Clear Clear Urine pH 5.5 5.0-9.0 Urine Specific [place] 1.008 1.001-1.035 Urine Protein Negative Negative Urine Ketones Negative Negative Urine Blood Negative Negative /uL Urine Nitrite Negative Negative Urine Bilirubin Negative Negative Urine Urobilinogen Normal Negative mg/dL Urine Leukocyte Esterase Negative Negative /uL Urine RBC 1 0 - 3 /hpf Urine Microscopic WBC 0-3 /HPF Urine Squamous Epithelial Cells None seen <5 /hpf Urine Bacteria None seen None Seen /hpf Urine Glucose Normal Normal mg/dL Assessment Syncope, rule out cardiac etiology NSTEMI Coronary artery disease status post PTCA x2 MICHAEL (on aspirin) Rule out structural heart disease Hypertension Dyslipidemia COPD on home oxygen Pneumonia Type 2 diabetes mellitus History of tobacco use Plan/Recommendation We will continue with the following plan/recommendations (Dr. Bess): * Echocardiogram to evaluate cardiac function * Bilateral carotid ultrasound: Negative * Orthostatic vitals * Cardiac surveillance: Monitor for any arrhythmias or ECG changes Patient seen and examined at bedside with . Further recommendations per clinical course and progression. Thank you for allowing us to care for this patient. Please call with any questions or concerns. Critical care time spent: 40 minutes This medical document was created using an electronic medical record system with voice recognition software and computerized dictation system. Although this document has been carefully reviewed, there might still be some phonetic and typographical errors. Occasional wrong-word or ``sound-alike substitutions may have occurred due to the inherent limitations of voice recognition software. These areas are purely typographical due to imperfections of the software programs and do not reflect any compromise in the patient's medical care. Please read the chart carefully and recognize, using context, where these substitutions have occurred. Plan discussed with: Patient NYHA Physical activity limitations: NA Date of Service: Dec 17, 2024 Billing Provider: HODA SEGOVIA Cardiology Common Codes: 30116-[id number] INP/OBS CARE (High) Cardiology Consultation Codes: [id number] CONSULT <45MIN HODA SEGOVIA Dec 17, 2024 16:48
--- NOTE | 2024-12-17 16:56 | DVHPNRES ---
Progress Note Date Seen: Dec 17, 2024 Resident Creating Document: LEANA NAIDUBEREBALTAZAR RESIDENT Medical Necessity Reason Pt with a Central, PICC or Fol: No Subjective Review of Systems Patient is a 89-year-old male with a past medical history of COPD at 2 L home oxygen, type 2 diabetes mellitus, CT status post PCI 3 years ago was brought to the ED via EMS for an episode of syncope and severe shortness of breath. Patient is English speaking and history was obtained from the daughter who lives with the patient. She reports that since last 2 days patient has been having diarrhea with multiple episodes of loose stools. Yesterday night patient went to the restroom after he had a bowel movement and was trying to clean himself up in the shower when he started to feel short of breath and got dizzy. He went to his room feeling extremely shortness of breath and lost consciousness. Patient's daughter reported that he stopped breathing and went pale, she did not check his pulse but started giving him CPR , put him back on his oxygen and after about a minute after he started responding and taking breaths. EMS were called and the patient was brought to the hospital. Daughter reports that the patient has been having cough with the associated phlegm yellowish green since the last 4 days Past medical history: COPD at 2 L home oxygen, type 2 diabetes mellitus, CT status post PCI with 2 MICHAEL 3 years ago, hypertension, dyslipidemia Past Surgical history: PCI Social history: Patient lives with family and currently does not smoke, drink alcohol or use other drugs Home medications: Metformin 100 mg q.d., aspirin 81 mg q.d., glipizide 25 mg q.d., Jardiance 10 mg q.d., albuterol inhaler q.6, Trelegy Ellipta inhaler q.h.s. Review of systems Patient seen and examined at bedside Reports that his breathing is better and denies chest pain, palpitations, dizziness, headache Reports urinary frequency with nocturia Objective vital signs Vital Sign Date Time Temp Pulse Resp B/P (MAP) Pulse Ox O2 Delivery O2 Flow Rate FiO2 12/17/24 16:51 97.8 64 16 123/85 (98) 97 97.8 12/17/24 12:35 2.0 28 12/17/24 12:35 Nasal Cannula Total Intake and Output 12/16/24 12/16/24 12/17/24 15:00 23:00 07:00 Intake Total 1000 ml 120 ml Output Total 1000 ml Balance 1000 ml -880 ml medications Current Medications Medications Dose Ordered Sig/Sintia Route Start Time Stop Time Status Last Admin Dose Admin Aspirin 81 mg DAILY PO 12/17/24 10:00 12/17/24 10:50 81 MG Diagnostic Test (Pha) 1 strip ACHS 12/17/24 07:00 12/17/24 11:30 1 STRIP Insulin Human Regular HS SC 12/17/24 22:00 Insulin Human Regular AC SC 12/17/24 07:00 12/17/24 12:04 3 UNITS Dextrose 50 ml UD PRN IV 12/16/24 22:15 Ondansetron HCl 4 mg Q4HP PRN IV 12/16/24 22:15 Nitroglycerin 0.4 mg Q5MINP PRN SL 12/16/24 22:15 Morphine Sulfate 2 mg Q30M PRN IV 12/16/24 22:15 Azithromycin 500 mg DAILY PO 12/18/24 10:00 Ceftriaxone Sodium 50 ml @ 100 mls/hr DAILY@09 IV 12/18/24 09:00 Levalbuterol HCl 1.25 mg Q6HR NEB 12/17/24 12:00 12/17/24 12:35 1.25 MG Ipratropium [place] 0.5 mg Q6HR NEB 12/17/24 12:00 12/17/24 12:35 0.5 MG Methylprednisolone Sodium Succinate 40 mg BID IV 12/17/24 22:00 Empaglifozin 10 mg DAILY PO 12/17/24 11:00 12/17/24 12:23 10 MG Examination Physical Examination Constitutional: Patient was alert and oriented to time, place and person and had pursed lip breathing at a rate of about 18-20 per minute, no accessory muscle use noted Gen - no pallor, no icterus, no cyanosis, no clubbing, no LAD, no edema . Skin - Patients skin is warm and dry. HEENT - normocephalic, atraumatic, moist mucous membranes. Neck - full ROM, no LAD, no JVD Pulmonary - B/L equal air entry with bilateral basilar inspiratory crackles, scattered wheezes cardiovascular - normal S1,S2 heard. no murmurs heard. GI - soft abdomen without tenderness to palpation. no hepatospleenomegaly. Bowel sounds normoactive Neurological - Bilateral upper extremity strength 5/5, bilateral lower extremity strength 5/5, no facial droop, normal speech, no tremor, no sensory deficiets. laboratory and microbiology Laboratory Tests 12/17/24 07:00 Test 12/17/24 07:00 Range/Units Serum Glucose 141 H 74-106 mg/dL Problem List/Assessment/Plan Problem List/Assessment/Plan Assessment Acute on chronic hypoxic respiratory failure Syncope likely due to shortness of breath COPD exacerbation likely due to pneumonia Community-acquired pneumonia likely due to Gram-negative/atypical bacteria - on supplemental oxygen, goal SpO2> 88% - 12 lead ECG showed increased CA interval, first-degree AV block, no ST segment or T-wave changes - carotid Doppler showed no hemodynamically significant stenosis in the bilateral carotid systems - chest x-ray showed pulmonary vascular congestion, suspected multifocal airspace disease - DuoNebs q.6 hours scheduled - Solu-Medrol 40 mg b.i.d. IV - antibiotics- IV ceftriaxone and p.o. azithromycin - COVID and flu pending - sputum culture pending ?Acute on chronic heart failure with preserved ejection fraction Concentric LVH ? Obstructive sleep apnea Coronary artery disease status post PCI with 2 MICHAEL - echo showed Aortic root dilation. Dilation of the sinuses of Valsalva. Right atrial and right ventricular enlargement. Concentric LVH. RV outflow tract dilation. Significant dilation of the pulmonary artery. Diminished excursion of the right coronary cusp. Calcific nodularity of the edge of the non coronary cusp of the right coronary cusp. Mild mitral annular calcification. Left ventricular function appears to be preserved. EF of about 50%. Right ventricular function is diminished. Moderate pulmonic insufficiency. Moderate tricuspid regurgitation. No pericardial effusion masses or vegetations discernible. - patient on furosemide 40 mg p.o. daily, goal balance -1.5L - Jardiance 10 mg p.o. - cardiology on board Type 2 diabetes mellitus with hyperglycemia - HbA1c 6.6% - on moderate ISS DVT prophylaxis Goals of care discussed with the patient and his daughter(Swapna) for over 25 minutes. Full code Plan discussed with Dr. Conrad Plan discussed with: Patient, Daughter (Swapna) My Orders My Orders Orders - MEHUL NAIDU RESIDENT Procedure Category Date Status Time Drug Screen LAB 12/17/24 Logged 08:28 Covid19 Antigen Farideh LAB 12/17/24 Logged Rapid Influenza A&B LAB 12/17/24 Logged 08:29 Azithromycin Tablet PHA 12/18/24 In Process (Zithromax Tablet) 10:00 Ceftriaxone 1gm/50ml PHA 12/18/24 In Process D5w (Rocephin) 09:00 Levalbuterol Hcl PHA 12/17/24 In Process (Xopenex Medneb) 12:00 Ipratropium Medneb PHA 12/17/24 In Process (Atrovent Medneb) 12:00 Methylprednisolone PHA 12/17/24 In Process Sod Succ (Solu Medrol 22:00 Empagliflozin PHA 12/17/24 In Process (Jardiance) 11:00 Bladder Scan ORDERS 12/17/24 Transmitted 15:36 Date of Service: Dec 17, 2024 Billing Provider: JANAY CONRAD MD Common Visit Codes: [id number] INP/OBS CARE(HIGH) MEHUL NAIDU RESIDENT Dec 17, 2024 16:56 JANAY CONRAD MD Dec 19, 2024 18:22
--- NOTE | 2024-12-17 17:49 | DVHSR ---
APPROVED REPORT EXAM: Two-dimensional and M-mode echocardiogram with Doppler and color Doppler. Blood Pressure: 132/68 mmHg INDICATION Evaluate cardiac function RISK FACTORS Height: 5'7', Weight: 155 DIMENSIONS LVDd3.9 (3.8-5.7cm)LA (2D)3.8 (1.9-4.0cm)Aortic Root4.0 (2.0-3.7cm) LVDs3.0 (2.5-4.0cm)LA (MM) (1.9-4.0cm)Aortic Cusp Exc1.1 (1.5-2.0cm) EF (%) 50.0 (55-70%)Rt. Atrium4.5 (1.9-4.0cm)Asc. Aorta4.0 cm IVSd1.1 (0.7-1.1cm)RV (D)4.5 (1.8-2.4cm) PWd0.7 (0.7-1.1cm) Mitral Valve MitralMitral Stenosis E/A ratio0.02D MVAcm2 Aortic Valve Aortic ValveAortic Stenosis V10.58m/[place] Mean GR.4mmHg V21.21m/[place] Peak GR.6mmHg LVOT Diameter2.4 (1.8-2.4cm)Doppler AVA2.17cm2 2D AVA1.97cm2 Pulmonic Valve V20.94m/s Tricuspid Valve TR Velocity2.78m/s [id number] Conclusion Technically good study sinus rhythm. Aortic root dilation. Dilation of the sinuses of Valsalva. Right atrial and right ventricular enlar gement. Concentric LVH. RV outflow tract dilation. Significant dilation of the pulmonary artery. Diminished excursion of the right coronary cusp. Calcific nodularity of the edge of the non coronary cusp of the right coronary cusp. Mild mitral annular calcification. Left ventricular function appears to be preserved. EF of about 50%. Right ventricular function is d iminished. Moderate pulmonic insufficiency. Moderate tricuspid regurgitation. No pericardial effusion masses or vegetations discernible.
[2024-12-17] MEDS: methylPREDNISolone SOD SUCC 40 MG/ML VL IV SCH (22:30)
[2024-12-17] MEDS: ENOXAPARIN SOD 40 MG/0.4 ML SYRINGE SC SCH (22:35)
--- NOTE | 2024-12-17 23:40 | DVHINCON2 ---
Date Seen: Dec 17, 2024 Referring Physician JENNIFER Hall Reason for Consultation Syncope History of Present Illness This is an 89-year-old Occitan-speaking male with a past medical history of coronary artery disease status post PTCA x2 MICHAEL (on ASA), hypertension, dyslipidemia, COPD on home oxygen, type 2 diabetes mellitus, and history of tobacco use who presents to the ED with complaints of syncopal episode. According to the patient, he was in the restroom cleaning himself up after having an incontinent episode and suddenly began to feel dizzy. He reports he was walking back to his room from the restroom and continued to feel dizzy. He reports making it back to his room in which he sat down and called out for his daughter. He states that he continued feeling extremely short of breath at this point in time, told his daughter he needed his oxygen. The patient then reports losing consciousness. Confirmed the incident with patients daughter, Swapna. Per patient's daughter, she reports that once the patient sat down, his head went back as if he was staring at the ceiling and he appeared to be unresponsive. The patient's daughter states that she panicked and immediately initiated CPR and put oxygen on the patient. She denies ever checking if the patient lost a pulse. She reports that within 2 minutes the patient was responsive again. He was brought to the emergency room for further evaluation. Cardiology has now been consulted for syncope Initial twelve lead electrocardiogram reveals normal sinus rhythm with first-degree AV block and with nonspecific ST segment changes to anterior leads. Initial troponin level of 96ng/L with up trend and peak level at 153ng/L. Chest x-ray shows pulmonary vascular congestion and/or multifocal airspace disease. The patient does not see a crm specialist in the outpatient setting. Allergies: Coded Allergies: NO KNOWN ALLERGIES (Unverified , 09/12/21) Home Meds Active Scripts Oseltamivir Phosphate (Tamiflu) 75 Mg Cap, 1 CAP PO BID, #10 CAP Prov:YARIEL HOLT MD 10/04/22 Azithromycin (Azithromycin) 500 Mg Tab, 1 TAB PO DAILY, #5 TAB Prov:YARIEL HOLT MD 10/04/22 Cephalexin (KEFLEX 500) 500 Mg Cap, 1 CAP PO TID for 3 Days, #9 CAP Prov:SADAF GOODSON MD 04/26/22 Prednisone (Prednisone) 20 Mg Tab, 20 MG PO BID for 5 Days, #10 TAB Prov:SADAF GOODSON MD 04/26/22 Reported Medications Atorvastatin Calcium (ATORVASTATIN CALCIUM) 20 Mg Tab, 1 TAB PO DAILY 09/30/22 Clopidogrel Bisulfate (CLOPIDOGREL) 75 Mg Tab, 1 TAB PO DAILYPRN 09/27/22 Fluticasone Furoate-Vilanterol (BREO ELLIPTA) 1 Inh Inh, 1 PUFF IN DAILY, INHALER DOSE 100/25 MCG 04/23/22 Metformin HCl (Metformin Hydrochloride) 1,000 Mg Tab, 1000 MG PO BID, TAB 04/23/22 Albuterol Sulfate (Albuterol Sulfate Hfa) 108 Mcg/Act Aer, 2 PUFF PO PRN for SHORTNESS OF BREATH EVERY 4 TO 6 HOURS NEEDED 04/20/22 Omeprazole (Omeprazole Dr) 20 Mg Cap, 1 CAP PO DAILY 04/20/22 Benazepril Hcl (Benazepril Hcl) 10 Mg Tab, 10 MG PO DAILY, MG 09/13/21 Glipizide (Glipizide) 5 Mg Tab, 5 MG PO BID, MG BEFORE MEALS 09/13/21 Current Medications Current Medications Medications (Trade) Dose Ordered Sig/Sintia Route PRN Reason Start Time Stop Time Status Last Admin Aspirin 81 mg DAILY PO 12/17/24 10:00 12/17/24 10:50 Diagnostic Test (Pha) (Accu-Chek Comfort Curve T) 1 strip ACHS 12/17/24 07:00 12/17/24 17:00 Insulin Human Regular (InsuLIN R) HS SC 12/17/24 22:00 Insulin Human Regular (InsuLIN R) AC SC 12/17/24 07:00 12/17/24 12:04 Hydralazine HCl (Apresoline Injection) 10 mg Q6HP PRN IV SBP>150 12/16/24 22:30 12/17/24 08:28 DC Azithromycin (Zithromax Tablet) 500 mg DAILY PO 12/18/24 10:00 Ceftriaxone Sodium 50 ml @ 100 mls/hr DAILY@09 IV 12/18/24 09:00 Levalbuterol HCl (Xopenex Medneb) 1.25 mg Q6HR NEB 12/17/24 12:00 12/17/24 19:44 Ipratropium [place] (Atrovent Medneb) 0.5 mg Q6HR NEB 12/17/24 12:00 12/17/24 19:43 Methylprednisolone Sodium Succinate (Solu Medrol) 40 mg BID IV 12/17/24 22:00 Empaglifozin (Jardiance) 10 mg DAILY PO 12/17/24 11:00 12/17/24 12:23 Enoxaparin Sodium (Lovenox) 40 mg DAILY@1800 SC 12/17/24 20:00 Review of Systems Constitutional: No symptom reported Ears, Nose, & Throat: No symptom reported Eyes: No symptom reported Neurological: Syncope Pulmonary/Respiratory: No symptoms reported Cardiovascular: No symptom reported Gastrointestinal: No symptom reported Genitourinary: No symptom reported Musculoskeletal: No symptom reported Skin: No symptom reported Psychiatric: No symptom reported Endocrine: No symptom reported Hematologic/Lymphatic: No symptom reported Vital Signs Vital Signs Date Time Temp Pulse Resp B/P (MAP) Pulse Ox O2 Delivery O2 Flow Rate FiO2 12/17/24 21:00 97.6 70 17 115/58 (77) 94 97.6 12/17/24 12:35 2.0 28 12/17/24 12:35 Nasal Cannula Physical Exam GENERAL: Awake, alert, oriented. LUNGS: Clear. CARDIOVASCULAR: Heart sounds are good. ABDOMEN: Soft. Labs/Diagnostic Data Labs Test 12/17/24 16:47 12/17/24 07:00 12/17/24 02:13 12/16/24 22:00 Range/Units POC Glucose 125 H 70-106 mg/dl White Blood Count 8.8 4.4-10.8 10^3/uL Red Blood Count 4.30 L 4.5-5.90 10^6/uL Hemoglobin 13.5 13.5-17.5 g/dL Hematocrit 40.4 L 41.0-53.0 % Mean Corpuscular Volume 93.8 80.0-100.0 fL Mean Corpuscular Hemoglobin 31.4 28.0-32.0 pg Mean Corpuscular Hemoglobin Concent 33.5 32.0-36.0 g/dL Red Cell Distribution Width 15.8 H 11.8-14.3 % Platelet Count 204 140-450 10^3/uL Mean Platelet Volume 8.7 6.9-10.8 fL Neutrophils (%) (Auto) 62.5 37.0-80.0 % Lymphocytes (%) (Auto) 29.0 10.0-50.0 % Monocytes (%) (Auto) 5.7 0.0-12.0 % Eosinophils (%) (Auto) 1.9 0.0-7.0 % Basophils (%) (Auto) 0.9 0.0-2.0 % Neutrophils # (Auto) 5.5 1.6-8.6 10 ^3/uL Lymphocytes # (Auto) 2.5 0.4-5.4 10 ^3/uL Monocytes # (Auto) 0.5 0-1.3 10 ^3/uL Eosinophils # (Auto) 0.2 0-0.8 10 ^3/uL Basophils # (Auto) 0.1 0-0.2 10 ^3/uL Nucleated Red Blood Cells 0.2 % Sodium Level 137 136-145 mmol/L Potassium Level 4.0 3.5-5.1 mmol/L Chloride Level 105 98-107 mmol/L Carbon Dioxide Level 24 20-31 mmol/L Anion Gap 8 5-15 Blood Urea Nitrogen 10 # 9-23 mg/dL Creatinine 0.81 0.700-1.30 mg/dL Glomerular Filtration Rate Calc 85 >90 mL/min BUN/Creatinine Ratio 12.3 10.0-20.0 Serum Glucose 141 H 74-106 mg/dL Hemoglobin A1c 6.6 H <5.7 % A1C Calcium Level 9.1 8.7-10.4 mg/dL Magnesium Level 1.7 1.6-2.6 mg/dL Total Bilirubin 0.8 0.2-1.0 mg/dL Aspartate Amino Transferase (AST) 21 13-40 U/L Alanine Aminotransferase (ALT) 22 7-40 U/L Alkaline Phosphatase 76 46-116 U/L B-Type Natriuretic Peptide 358.56 0-100 pg/mL Total Protein 6.7 5.7-8.2 g/dL Albumin 3.8 3.2-4.8 g/dL Triglycerides Level 105 < 150 mg/dL Cholesterol Level 138 < 200 mg/dL LDL Cholesterol 83 < 100 mg/dL HDL Cholesterol 47 40-59 mg/dL Thyroid Stimulating Hormone (TSH) 1.15 0.55-4.78 uIU/mL Troponin I High Sensitivity 153 *H </=54 ng/L Urine Color Colorless Yellow Urine Clarity Clear Clear Urine pH 5.5 5.0-9.0 Urine Specific [place] 1.008 1.001-1.035 Urine Protein Negative Negative Urine Ketones Negative Negative Urine Blood Negative Negative /uL Urine Nitrite Negative Negative Urine Bilirubin Negative Negative Urine Urobilinogen Normal Negative mg/dL Urine Leukocyte Esterase Negative Negative /uL Urine RBC 1 0 - 3 /hpf Urine Microscopic WBC 0-3 /HPF Urine Squamous Epithelial Cells None seen <5 /hpf Urine Bacteria None seen None Seen /hpf Urine Glucose Normal Normal mg/dL Assessment Syncope, rule out cardiac etiology. NSTEMI. Coronary artery disease status post PTCA x2 MICHAEL (on aspirin). Rule out structural heart disease. Hypertension. Dyslipidemia . COPD on home oxygen. Pneumonia. Type 2 diabetes mellitus. History of tobacco use. Plan/Recommendation I agree with your ongoing assessment and care of plan. Patient has been seen by Yael Gaines NP on my behalf, her and I discussed the plan with the patient. Telemetry reviewed. Echocardiogram to evaluate cardiac function. Bilateral carotid ultrasound: Negative. Orthostatic vitals. Cardiac surveillance: Monitor for any arrhythmias or ECG changes. Additional plan as per the hospital course. Plan discussed with: Patient NYHA Physical activity limitations: NA Date of Service: Dec 17, 2024 Billing Provider: CLEM DOWLING MD Cardiology Common Codes: 16747-SUZVCRO INP/OBS CARE (High) Cardiology Consultation Codes: 05960-[id number] CONSULT <45MIN CLEM DOWLING MD Dec 17, 2024 22:29
[2024-12-18] VITALS (9 sets, daily range): BP systolic 129–157; BP diastolic 63–84; PULSE 64–102; RESP 15–22; TEMP 96.5–97.6; O2SAT 66–94
[2024-12-18 07:06] LABS: Basophils # (auto) 0 10 ^3/uL (0-0.2); Basophils % (auto) 0.2 % (0.0-2.0); Eosinophils # (auto) 0 10 ^3/uL (0-0.8); Hemoglobin 15.1 g/dL (13.5-17.5); Lymphocytes # (auto) 0.8 10 ^3/uL (0.4-5.4); Lymphocytes % (auto) 12.6 % (10.0-50.0); Mean Corpuscular Hemoglobin 32.5 pg (28.0-32.0); Mean Corpuscular Hgb Conc. 35.2 g/dL (32.0-36.0); Mean Corpuscular Volume 92.4 fL (80.0-100.0); Monocytes # (auto) 0 10 ^3/uL (0-1.3); Monocytes % (auto) 0.6 % (0.0-12.0); Neutrophils # (auto) 5.8 10 ^3/uL (1.6-8.6); Neutrophils % (auto) 86.6 % (37.0-80.0); Nucleated Red Blood Cells % 0.1 %; Platelet Count (auto) 243 10^3/uL (140-450); Red Blood Cells 4.66 10^6/uL (4.5-5.90); Red Cell Distribution Width 15.5 % (11.8-14.3); White Blood Cell 6.7 10^3/uL (4.4-10.8)
[2024-12-18 07:09] LABS: Anion Gap 11 (5-15); Calcium 9.8 mg/dL (8.7-10.4); Carbon Dioxide 27 mmol/L (20-31); Chloride 98 mmol/L (98-107); Potassium 3.9 mmol/L (3.5-5.1)
[2024-12-18 07:15] LABS: Blood Urea Nitrogen 21 mg/dL (9-23)
[2024-12-18 07:17] LABS: Glucose 202 mg/dL (74-106); Sodium 136 mmol/L (136-145)
[2024-12-18] MEDS: cefTRIAXone 1GM/50ML D5W 50 ML IV SCH (08:03)
[2024-12-18] MEDS: AZITHROMYCIN 250 MG TAB PO SCH (08:03)
[2024-12-18 08:17] LABS: COVID19 ANTIGEN SOFIA FIA NEGATIVE (NEGATIVE); Rapid Influenza A Negative (Negative); Rapid Influenza B Negative (Negative)
[2024-12-18] MEDS ORDERED: LEVO750T40 PO (09:29)
--- NOTE | 2024-12-18 10:04 | DVHDSRES ---
Discharge Summary Date of Admission Resident Creating Document: PAIGE GALVAN RESIDENT Dec 16, 2024 at 22:08 Date of Discharge: Dec 18, 2024 Admitting Diagnosis Syncope likely due autonomic disfunction Labs/Diagnostic Data: Laboratory Results Test 12/18/24 07:31 12/18/24 06:41 12/18/24 06:27 12/17/24 07:00 Influenza Type A Antigen Negative (Negative) Influenza Type B Antigen Negative (Negative) SARS-CoV-2 Antigen (Rapid) Negative (NEGATIVE) POC Glucose 219 mg/dl (70-106) White Blood Count 6.7 10^3/uL (4.4-10.8) Red Blood Count 4.66 10^6/uL (4.5-5.90) Hemoglobin 15.1 g/dL (13.5-17.5) Hematocrit 43.0 % (41.0-53.0) Mean Corpuscular Volume 92.4 fL (80.0-100.0) Mean Corpuscular Hemoglobin 32.5 pg (28.0-32.0) Mean Corpuscular Hemoglobin Concent 35.2 g/dL (32.0-36.0) Red Cell Distribution Width 15.5 % (11.8-14.3) Platelet Count 243 10^3/uL (140-450) Mean Platelet Volume 8.7 fL (6.9-10.8) Neutrophils (%) (Auto) 86.6 % (37.0-80.0) Lymphocytes (%) (Auto) 12.6 % (10.0-50.0) Monocytes (%) (Auto) 0.6 % (0.0-12.0) Eosinophils (%) (Auto) 0.0 % (0.0-7.0) Basophils (%) (Auto) 0.2 % (0.0-2.0) Neutrophils # (Auto) 5.8 10 ^3/uL (1.6-8.6) Lymphocytes # (Auto) 0.8 10 ^3/uL (0.4-5.4) Monocytes # (Auto) 0 10 ^3/uL (0-1.3) Eosinophils # (Auto) 0 10 ^3/uL (0-0.8) Basophils # (Auto) 0 10 ^3/uL (0-0.2) Nucleated Red Blood Cells 0.1 % Sodium Level 136 mmol/L (136-145) Potassium Level 3.9 mmol/L (3.5-5.1) Chloride Level 98 mmol/L (98-107) Carbon Dioxide Level 27 mmol/L (20-31) Anion Gap 11 (5-15) Blood Urea Nitrogen 21 mg/dL (9-23) Creatinine 1.05 mg/dL (0.700-1.30) Glomerular Filtration Rate Calc 69 mL/min (>90) BUN/Creatinine Ratio 20.0 (10.0-20.0) Serum Glucose 202 mg/dL (74-106) Calcium Level 9.8 mg/dL (8.7-10.4) Hemoglobin A1c 6.6 % A1C (<5.7) Magnesium Level 1.7 mg/dL (1.6-2.6) Total Bilirubin 0.8 mg/dL (0.2-1.0) Aspartate Amino Transferase (AST) 21 U/L (13-40) Alanine Aminotransferase (ALT) 22 U/L (7-40) Alkaline Phosphatase 76 U/L (46-116) B-Type Natriuretic Peptide 358.56 pg/mL (0-100) Total Protein 6.7 g/dL (5.7-8.2) Albumin 3.8 g/dL (3.2-4.8) Triglycerides Level 105 mg/dL (< 150) Cholesterol Level 138 mg/dL (< 200) LDL Cholesterol 83 mg/dL (< 100) HDL Cholesterol 47 mg/dL (40-59) Thyroid Stimulating Hormone (TSH) 1.15 uIU/mL (0.55-4.78) Test 12/17/24 02:13 12/16/24 22:00 Troponin I High Sensitivity 153 ng/L (</=54) Urine Color Colorless (Yellow) Urine Clarity Clear (Clear) Urine pH 5.5 (5.0-9.0) Urine Specific [place] 1.008 (1.001-1.035) Urine Protein Negative (Negative) Urine Ketones Negative (Negative) Urine Blood Negative /uL (Negative) Urine Nitrite Negative (Negative) Urine Bilirubin Negative (Negative) Urine Urobilinogen Normal mg/dL (Negative) Urine Leukocyte Esterase Negative /uL (Negative) Urine RBC 1 /hpf (0 - 3) Urine Microscopic WBC /HPF (0-3) Urine Squamous Epithelial Cells None seen /hpf (<5) Urine Bacteria None seen /hpf (None Seen) Urine Glucose Normal mg/dL (Normal) Other Laboratory Tests 12/18/24 06:27 Brief Hx & Hospital Course: An 89-year-old male with a history of COPD on 2L home oxygen, type 2 diabetes mellitus, coronary artery disease status post PCI with MICHAEL, and hypertension was admitted for evaluation of syncope and severe shortness of breath. The patient had been experiencing diarrhea for three days prior to admission, followed by an episode of dyspnea and loss of consciousness at home. Workup revealed acute on chronic hypoxic respiratory failure likely secondary to a COPD exacerbation complicated by community-acquired pneumonia. Imaging and sputum cultures suggested multifocal airspace disease, and the patient was managed with IV ceftriaxone and oral azithromycin. The patients hospital course was complicated by mild hyperglycemia, addressed with insulin adjustments, and suspected obstructive sleep apnea, which was evaluated with nocturnal oxygen supplementation. Echocardiography showed concentric LVH, reduced EF (~50%), and moderate tricuspid regurgitation, raising concerns of acute on chronic heart failure with preserved ejection fraction. The patient improved with diuresis, bronchodilators, and supportive care. He was discharged with home oxygen, optimized medications, and close follow-up as outpatient. Education on symptom monitoring and medication adherence was provided to the patient and family. Physical Examination Constitutional: Patient was alert and oriented to time, place and person and had pursed lip breathing at a rate of about 18-20 per minute, no accessory muscle use noted Gen - no pallor, no icterus, no cyanosis, no clubbing, no LAD, no edema . Skin - Patients skin is warm and dry. HEENT - normocephalic, atraumatic, moist mucous membranes. Neck - full ROM, no LAD, no JVD Pulmonary - B/L equal air entry with bilateral basilar inspiratory crackles, scattered wheezes cardiovascular - normal S1,S2 heard. no murmurs heard. GI - soft abdomen without tenderness to palpation. no hepatospleenomegaly. Bowel sounds normoactive Neurological - Bilateral upper extremity strength 5/5, bilateral lower extremity strength 5/5, no facial droop, normal speech, no tremor, no sensory deficits Case discussed with Dr Conrad Time spent on care 23 min Consults/Reason for consult cardiology due to syncope Operations or Procedures EXAM: Two-dimensional and M-mode echocardiogram with Doppler and color Doppler. Blood Pressure: 132/68 mmHg INDICATION Evaluate cardiac function RISK FACTORS Height: 5'7', Weight: 155 DIMENSIONS LVDd 3.9 (3.8-5.7cm) LA (2D) 3.8 (1.9-4.0cm) Aortic Root 4.0 (2.0- 3.7cm) LVDs 3.0 (2.5-4.0cm) LA (MM) (1.9-4.0cm) Aortic Cusp Exc 1.1 (1.5- 2.0cm) EF (%) 50.0 (55-70%) Rt. Atrium 4.5 (1.9-4.0cm) Asc. Aorta 4.0 cm IVSd 1.1 (0.7-1.1cm) RV (D) 4.5 (1.8-2.4cm) PWd 0.7 (0.7-1.1cm) Mitral Valve Mitral Mitral Stenosis E/A ratio 0.0 2D MVA cm2 Aortic Valve Aortic Valve Aortic Stenosis V1 0.58m/s AO Mean GR. 4mmHg V2 1.21m/s AO Peak GR. 6mmHg LVOT Diameter 2.4 (1.8-2.4cm) Doppler KULWINDER 2.17cm2 2D KULWINDER 1.97cm2 Pulmonic Valve V2 0.94m/s Tricuspid Valve TR Velocity 2.78m/s RVSP 40mmHg Conclusion Technically good study sinus rhythm. Aortic root dilation. Dilation of the sinuses of Valsalva. Right atrial and right ventricular enlargement. Concentric LVH. RV outflow tract dilation. Significant dilation of the pulmonary artery. Diminished excursion of the right coronary cusp. Calcific nodularity of the edge of the non coronary cusp of the right coronary cusp. Mild mitral annular calcification. Left ventricular function appears to be preserved. EF of about 50%. Right ventricular function is diminished. Moderate pulmonic insufficiency. Moderate tricuspid regurgitation. No pericardial effusion masses or vegetations discernible. Carotid Duplex Date: 12/17/2024 08:54 AM Clinical History: syncope Comparison: None Technique: Duplex Doppler evaluation of the extracranial carotid and vertebral arteries including color Doppler and spectral/pulsed waveform analysis was performed. Findings: RIGHT SIDE: The peak systolic velocities are 66 cm/s in the distal CCA and 47 cm/s in the proximal ICA.The ICA/CCA ratio is less than 1. The external carotid artery is patent with peak systolic velocity of 95 cm/s proximally. There is appropriate antegrade flow in the right vertebral artery. LEFT SIDE: The peak systolic velocities are 57 cm/s in the distal CCA and 47 cm/s in the proximal ICA.. The ICA/CCA ratio is less than 1. The external carotid artery is patent with peak systolic velocity of 84 cm/s proximally. There is appropriate antegrade flow in the left vertebral artery. IMPRESSION: No hemodynamically significant stenosis noted in the right carotid system. No hemodynamically significant stenosis noted in the left carotid system. Condition at Discharge: Stable Final Diagnosis/Problems List Acute on chronic hypoxic respiratory failure Syncope likely due autonomic disfunction COPD exacerbation likely due to pneumonia Community-acquired pneumonia likely due to Gram-negative/atypical bacteria Possible acute gastroenteritis ?Acute on chronic heart failure with preserved ejection fraction Concentric LVH ? Obstructive sleep apnea Coronary artery disease status post PCI with 2 MICHAEL Type 2 diabetes mellitus with hyperglycemia NSTEMI type 2 Discharge Disposition: Home Discharge Instruct/Medications Diet: Consistent carbohydrate, Cardiac 2g Na,low cholest Activity: Light activity Follow Up/Referral: [facility] Medications: see prescription Discharge Statement: "Patient was advised to return to the ER or call 911 if any headaches, dizziness, shortness of breath, chest pain, abdominal pain, bleeding, fevers, or worsening of medical condition. Patient was counseled about treatment plan, medications, possible side effects, patientverbalized understanding. All questions were answered to the best of my ability. This discharge took greater then 30 minutes in planning, reviewing documentation, counseling the patient, and discussing with other team members." ASSESSMENT ASSESSMENT Assessment syncope copd exacrebatiom Date of Service: Dec 18, 2024 Billing Provider: JANAY CONRAD MD Common Visit Codes: [id number]-[id number] DISCH DAY >30min PAIGE GALVAN RESIDENT Dec 18, 2024 10:04 JANAY CONRAD MD Dec 19, 2024 18:22
[2024-12-18] MEDS ORDERED: FURO20TA4 PO (10:10)
[2024-12-18] MEDS ORDERED: PRED20TA2 PO (10:10)
--- NOTE | 2024-12-18 18:39 | DVHPN2 ---
Progress Note - Dictate Date Seen: Dec 18, 2024 Medical Necessity Reason Pt with a Central, PICC or Fol: No Subjective Patient was seen and evaluated in follow up. Patient has no new complaints at this time. Echocardiogram shows an EF of about 50%, moderate pulmonic insufficiency, moderate tricuspid regurgitation, no pericardial effusion masses or vegetations discernible. Patient is cardiac stable for discharge. Telemetry reviewed. vital signs Vital Sign Date Time Temp Pulse Resp B/P (MAP) Pulse Ox O2 Delivery O2 Flow Rate FiO2 12/18/24 10:29 97.5 68 18 94 12/18/24 09:00 141/68 (92) 12/18/24 08:00 Room Air* 0 21 Total Intake and Output 12/17/24 12/17/24 12/18/24 15:00 23:00 07:00 Intake Total 300 ml Output Total 550 ml 400 ml Balance -550 ml -400 ml 300 ml objective GENERAL: Awake, alert, oriented. LUNGS: Clear. CARDIOVASCULAR: Heart sounds are good. ABDOMEN: Soft. laboratory and microbiology Laboratory Tests 12/18/24 06:27 Test 12/18/24 06:27 Range/Units Serum Glucose 202 H 74-106 mg/dL Problem List Syncope, rule out cardiac etiology. NSTEMI. Coronary artery disease status post PTCA x2 MICHAEL (on aspirin). Rule out structural heart disease. Hypertension. Dyslipidemia . COPD on home oxygen. Pneumonia. Type 2 diabetes mellitus. History of tobacco use. Assessment/Plan Continued all current supportive medical care. IV antibiotics as ordered. DVT prophylactics. Aspirin. Morphine for pain management. Additional plan as per the hospital course. Plan discussed with: Patient CLEM DOWLING MD Dec 18, 2024 16:29
== END 2024-12-18 11:15 | disposition home or self-care (01) | DRG 280 ==
LOC: EDBD 12:04 → ER 12:04 → TELE 22:08 → TELE-EAST 22:16
PROVIDERS: ADMIT Student in an Organized Health Care Education/Training Program; ATTEND Student in an Organized Health Care Education/Training Program
DX: I11.0 Hypertensive heart disease with heart failure (principal); G93.41 Metabolic encephalopathy; I21.A1 Myocardial infarction type 2; J15.69 Pneumonia due to other Gram-negative bacteria; I50.33 Acute on chronic diastolic (congestive) heart failure; J96.21 Acute and chronic respiratory failure with hypoxia; J15.9 Unspecified bacterial pneumonia; J44.1 Chronic obstructive pulmonary disease with (acute) exacerbation; J44.0 Chronic obstructive pulmonary disease with (acute) lower respiratory infection; G90.89 Other disorders of autonomic nervous system; E11.65 Type 2 diabetes mellitus with hyperglycemia; Z20.822 Contact with and (suspected) exposure to COVID-19; I25.10 Atherosclerotic heart disease of native coronary artery without angina pectoris; I44.0 Atrioventricular block, first degree; E78.5 Hyperlipidemia, unspecified; G47.33 Obstructive sleep apnea (adult) (pediatric); K52.9 Noninfective gastroenteritis and colitis, unspecified; Z98.61 Coronary angioplasty status; Z99.81 Dependence on supplemental oxygen; Z87.891 Personal history of nicotine dependence; Z79.84 Long term (current) use of oral hypoglycemic drugs; Z79.899 Other long term (current) drug therapy
CPT/HCPCS: 36415; 71045; 80048; 80053; 80061; 81001; 82962; 83036; 83735; 83880; 84443; 84484; 85025; 87426; 87804; 93005; 93306; 93886; 94640; 96360; G0378; J1815

== ENCOUNTER → 2025-02-08 | Outpatient (CLI) | payer MEDICARE, MEDICAID ==
[~2025-02-08] MED LIST changes: -AZIT500T66 PO; -CEPH-509 PO; +FURO20TA4 PO; +LEVO750T40 PO; -OSEL75CA5 PO
[2025-02-08 09:53] LABS: Urine Bacteria None Seen /hpf (None Seen)
[2025-02-08 10:04] LABS: Basophils # (auto) 0.1 10 ^3/uL (0-0.2); Basophils % (auto) 1.1 % (0.0-2.0); Eosinophils # (auto) 0.3 10 ^3/uL (0-0.8); Eosinophils % (auto) 3.1 % (0.0-7.0); Hematocrit 39.7 % (41.0-53.0); Hemoglobin 13.9 g/dL (13.5-17.5); Lymphocytes # (auto) 2.5 10 ^3/uL (0.4-5.4); Lymphocytes % (auto) 27.9 % (10.0-50.0); Mean Corpuscular Hemoglobin 32.4 pg (28.0-32.0); Mean Corpuscular Hgb Conc. 35.1 g/dL (32.0-36.0); Mean Corpuscular Volume 92.4 fL (80.0-100.0); Monocytes # (auto) 0.5 10 ^3/uL (0-1.3); Monocytes % (auto) 5.1 % (0.0-12.0); Neutrophils # (auto) 5.6 10 ^3/uL (1.6-8.6); Neutrophils % (auto) 62.8 % (37.0-80.0); Nucleated Red Blood Cells % 0.1 %; Platelet Count (auto) 248 10^3/uL (140-450); Red Cell Distribution Width 15.7 % (11.8-14.3)
[2025-02-08 10:13] LABS: Urine Blood Negative /uL (Negative); Urine Clarity Clear (Clear); Urine Color Light-Yellow (Yellow); Urine Protein, UAD Negative (Negative); Urine Specific Gravity 1.012 (1.001-1.035); Urine Squamous Epithelial Cell None Seen /hpf (<5); Urine Urobilinogen Normal (Negative); Urine WBC < 1 /HPF (0-3)
[2025-02-08 10:46] LABS: Alanine Aminotransferase 20 U/L (7-40); Albumin 4.3 g/dL (3.2-4.8); Alkaline Phosphatase 66 U/L (46-116); Anion Gap 7 (5-15); Aspartate Aminotransferase 17 U/L (13-40); BUN/Creatinine Ratio 19.5 (10.0-20.0); Blood Urea Nitrogen 17 mg/dL (9-23); Calcium 9.7 mg/dL (8.7-10.4); Carbon Dioxide 29 mmol/L (20-31); Chloride 103 mmol/L (98-107); Glucose 105 mg/dL (74-106); Potassium 4.3 mmol/L (3.5-5.1); Sodium 139 mmol/L (136-145); Total Protein 7.2 g/dL (5.7-8.2)
[2025-02-08 10:47] LABS: Bilirubin, Total 0.6 mg/dL (0.2-1.0)
== END | disposition home or self-care (01) ==
LOC: LAB 09:39
PROVIDERS: ATTEND Nurse Practitioner Family
DX: N39.0 Urinary tract infection, site not specified (principal); E11.65 Type 2 diabetes mellitus with hyperglycemia; Z79.899 Other long term (current) drug therapy
CPT/HCPCS: 36415; 80053; 81001; 83036; 85025

== ENCOUNTER 2025-06-06 15:08 | Emergency (ER) | payer MEDICARE, MEDICAID ==
[~2025-06-06] VITALS: Ht 170.2 cm; Wt 72.7 kg
[2025-06-06] MEDS ORDERED: ATROPINE SULF 1 MG/10ml SYR IV ONE (15:09)
[2025-06-06 15:11] VITALS: TEMP 98.9
--- NOTE | 2025-06-06 15:36 | ED.PDOC ---
CPR-HPI HPI Comments 89 y/o M, BIBA, with PMHx of COPD and CAD presents to the ED in full arrest. EMS reports, patient at home with family when he began to c/o shortness of breath and inability to get comfortable, while family set-up a breathing Tx to try and alleviate symptoms patient suddenly collapse. Upon arrival to Scene at 1436, patient was found to be asystole and then converted to PEA. Patient was given x5 epinephrin in the field with no change in rhythm and was intubated with a 7.0 ETT at 23cm at the teeth. Patient arrived to the ED at 1506, was transferred to ED bed 17, patient remains pulseless at this time, ACLS protocol ongoing. Time Seen by MD: 15:06 Primary Care Provider: DIAMOND Reviewed Notes: Nurses Notes, Technical Advisor Notes, Medications, Allergies Allergies: Coded Allergies: NO KNOWN ALLERGIES (Unverified , 09/12/21) Home Meds Active Scripts Prednisone (Prednisone) 20 Mg Tab, 40 MG PO DAILY for 5 Days, #10 MG Prov:PAIGE GALVAN 12/18/24 Furosemide (Furosemide) 20 Mg Tab, 20 MG PO DAILY for 10 Days, #10 TAB Prov:PAIGE GALVAN 12/18/24 Levofloxacin Hemihydrate (LEVOFLOXACIN) 750 Mg Tab, 750 MG PO DAILY for 5 Days, #5 TAB Prov:PAIGE GALVAN 12/18/24 Reported Medications Atorvastatin Calcium (ATORVASTATIN CALCIUM) 20 Mg Tab, 1 TAB PO DAILY 09/30/22 Clopidogrel Bisulfate (CLOPIDOGREL) 75 Mg Tab, 1 TAB PO DAILYPRN 09/27/22 Fluticasone Furoate-Vilanterol (BREO ELLIPTA) 1 Inh Inh, 1 PUFF IN DAILY, INHALER DOSE 100/25 MCG 04/23/22 Metformin HCl (Metformin Hydrochloride) 1,000 Mg Tab, 1000 MG PO BID, TAB 04/23/22 Albuterol Sulfate (Albuterol Sulfate Hfa) 108 Mcg/Act Aer, 2 PUFF PO PRN for SHORTNESS OF BREATH EVERY 4 TO 6 HOURS NEEDED 04/20/22 Omeprazole (Omeprazole Dr) 20 Mg Cap, 1 CAP PO DAILY 04/20/22 Benazepril Hcl (Benazepril Hcl) 10 Mg Tab, 10 MG PO DAILY, MG 09/13/21 Glipizide (Glipizide) 5 Mg Tab, 5 MG PO BID, MG BEFORE MEALS 09/13/21 Information Source: Patient, Emergency Med Personnel Mode of Arrival: EMS Timing: Minutes Duration: Down time prior EMS: (30), Total time prior hopital: Onset: At rest Available Hx: Prior Cardiac Disease Inital rhythm: PEA Treatment: CPR, Intubation Response: No response Associated signs and symptoms: None Past Medical History PAST MEDICAL HISTORY: Asthma, CAD, COPD, DM, HTN Surgical History: PTCA Family History Family History: Reviewed,noncontributory to illness, Family hx of Cancer Social History Smoker: Non-Smoker, Quit Greater Than 1 Year Alcohol: Denies ETOH Use Drugs: Denies Drug Use Lives In: Home Unable to Obtain due to: Medical Urgency, Intubated Physical Exam General Appearance: Other (CPR in progress) HEENT: Pharynx Normal Neck: Normal Inspection Respiratory: Other (CPR in progress) Cardiovascular: Other (CPR in progress) Breast Exam: Normal Gastrointestinal: No Organomegaly Genitalia: Deferred Pelvic: Deferred Rectal: Deferred Extremities: No pedal edema Neurologic: No Motor Deficits Cerebellar Function: NOT DONE Reflexes: NOT DONE Skin: Pallor Lymphatic: NOT DONE Was a procedure done? Was a procedure done?: No Differential Dx CPR Differential Diagnosis: Cardiopulmonary arrest, Myocardial Infarction, Pulmonary Embolus, Respiratory Failure X-Ray, Labs, Meds, VS Vital Signs Date Time Temp Pulse Resp B/P (MAP) Pulse Ox O2 Delivery O2 Flow Rate FiO2 06/06/25 17:53 70 Ambu-Bag 06/06/25 15:49 Mechanical Ventilator+ 100 100 06/06/25 15:11 98.9 98.9 Time of 1ST Reevaluation: 15:36 Reevaluation 1ST: Unchanged Patient Education/Counseling: Diagnosis, Treatment Family Education/Counseling: No Family Present SEPSIS Sepsis Screen Vital Signs Date Time Temp Pulse Resp B/P (MAP) Pulse Ox O2 Delivery O2 Flow Rate FiO2 06/06/25 17:53 70 Ambu-Bag 06/06/25 15:49 Mechanical Ventilator+ 100 100 06/06/25 15:11 98.9 98.9 Departure 1 Departure Time of Disposition: 18:30 (Patient presented in cardiac arrest. ACLS per protocols. Patient hopefully going to be resuscitated. Patient ) Impression: Primary Impression: Cardiac arrest Disposition: 20 Condition: Other () Critical Care Note Critical Care Time?: No Heart Score Heart Score: Heart Score Response (Comments) Value History N/A 0 EKG N/A 0 Age N/A 0 Risk Factors N/A 0 Troponin N/A 0 Total 0 Stability Stability form required: No I personally scribed for REJI MCGREGOR MD ([email or web address]) on 06/06/25 at 15:36. Electronically submitted by Dania Humphreys ([email or web address]). I personally scribed for REJI MCGREGOR MD ([email or web address]) on 06/06/25 at 15:50. Electronically submitted by Dania Humphreys ([email or web address]). REJI MCGREGOR MD Jun 06, 2025 15:36
--- NOTE | 2025-06-06 17:53 | RESUS ---
CODE BLUE ASSESSSMENT History of Events History of Events: Patient brought to ER via EMS, CPR in progress (NATASHA machine). EMS reports total downtime approximately 20 min prior to ER arrival. Per EMS, patient reported sudden onset SOB and weakness. Hx of COPD. While family attempted to retrieve patients portable O2 tank used PRN, patient became unresponsive and pulseless. Family denies acute illness. EMS REPORTS 5 EPIS GIVEN PRIOR TO ER ARRIVAL. Initial Information Date: Jun 06, 2025 Time: 15:07 Location of Arrest: ER Arrest Witnessed: Yes CPR started initial time: 14:47 CPR started by whom: Bystander Pre-Hospital Care: ACLS Type of arrest: Cardiac, Respiratory Spontaneous Respirations: No Pulse Present: No Monitoring: Pulse Oximetry, Capnography, Telemetry Crash Cart Opened and Supplies: Yes Airway Ventilation Breathing at Onset: Assisted O2 Sat by Pulse Oximetry: 70 Oxygen Delivery Method: Ambu-Bag Artificial Ventilation: Bag/Endo tube Intubation Size: 7.0 cuffed Intubated by: EMS Intubated orally: Yes Intubated Nasaly: No Tube secured at: 22 CO2 indicator used: Yes Confirmation: Auscultation, Exhaled CO2 Suctioning (Oral/Tracheal): Yes Circulation Circulation #1: Time: 15:08 Circulation Comment: PEA Circulation #2: Time: 15:10 Circulation Comment: PEA Circulation #3: Time: 15:12 Circulation Comment: PEA Circulation #4: Time: 15:14 Circulation Comment: PEA Circulation #5: Time: 15:16 Circulation Comment: PEA Circulation #6: Time: 15:19 Circulation Comment: PEA/ TOD Procedure - IV Procedure - IV #1: IV Side: Left IV Location: Forarm Posterior IV Catheter Type: Peripheral IV IV Placed: Pre-Hospital IV Placed by EMS IV Gauge: 18 IV Line Care: Saline Flush Procedure - IV #2: IV start time: 15:13 IV Side: Right IV Location: Antecubital IV Catheter Type: Peripheral IV IV Placed: In Hospital IV Placed by CASINO RUNNERARYAN SNYDER Procedure - Intraosseous Site of Intraosseous: Tibia ja-medial Intraosseous inserted by: EMS Medications & Response Medications and Responses #1: Medication Time: 15:08 ADULT Medications Given ADULT: Epinephrine 1 mg Route of Administration: IV Medications and Responses #2: Medication Time: 15:09 ADULT Medications Given ADULT: Sodium Bacarbinate 50 meq, Calcium Chloride 10 mL Route of Administration: IV Medications and Responses #3: Medication Time: 15:12 ADULT Medications Given ADULT: Epinephrine 1 mg Route of Administration: IV Medications and Responses #4: Medication Time: 15:14 ADULT Medications Given ADULT: Magnesium Sulfate 2 gm Route of Administration: IV Medications and Responses #5: Medication Time: 15:16 ADULT Medications Given ADULT: Epinephrine 1 mg Route of Administration: IV Nurses Notes Alex Coma Scale Eye Opening: None (1) Alex Coma Scale Verbal: None (1) Alex Coma Scale Motor: None (1) Glascow Total: 3 Pupil Reaction: Non Reactive Bedside Blood Glucose: 354 Time Code Ended Time Code Ended: 15:19 Post Arrest Status: Outcome of code: Unsuccessful Patient pronounced by: DR MCGREGOR Family notified: Yes Attending called: No Code Team Present: DR BALBIR MARLOW RN CLAUDIA BAEZA RN CLAUDIO GONZALEZ/ CJ AMAYA Aleida Rios Jun 06, 2025 17:53
== END 2025-06-06 18:54 ==
LOC: EDBD 15:08 → ER 15:08
DX: I46.9 Cardiac arrest, cause unspecified (principal); J44.89 Other specified chronic obstructive pulmonary disease; I25.10 Atherosclerotic heart disease of native coronary artery without angina pectoris; E11.9 Type 2 diabetes mellitus without complications; I10 Essential (primary) hypertension; Z79.899 Other long term (current) drug therapy
CPT/HCPCS: 92950; 99285; J0169; J3475